=== PATIENT | female | born 1995 | race Caucasian/White ===

== ENCOUNTER 2022-06-08 11:33 | Inpatient (IN) | payer MEDICAID, SELFPAY ==
[2022-06-08] VITALS (15 sets, daily range): BP systolic 111–128; BP diastolic 65–79; PULSE 99–118; RESP 0–22; TEMP 36.6–36.7; O2SAT 95–98; BMI 19.1
--- NOTE | 2022-06-08 11:40 | ECG_ITS ---
[facility] Test Date: 2022-06-08 Pat Name: Lilliam Alvarez Department: Room: EDIP Gender: Female Layup Worker: : 1995 Requested By: Jaswinder Koo Order Number: [id number] Jude MD: Casper Cody M.D. Measurements Intervals [place] Rate: 119 P: 70 CO: 167 QRS: 66 QRSD: 89 T: 52 QT: 302 QTc: 425 Interpretive Statements SINUS TACHYCARDIA Compared to ECG 02/01/2016 19:01:50 Sinus rhythm no longer present Sinus arrhythmia no longer present T-wave abnormality no longer present Electronically Signed On 06-09-2022 22:07:18 CDT by Casper Cody M.D. [id number] f
[2022-06-08 12:06] LABS: Glucose Point of Care > 600 mg/dL (70-110)
--- NOTE | 2022-06-08 12:07 | ED_ITS ---
HPI - General Adult General: Chief complaint: General Medical Stated complaint: Diabetic, Chest Pain, Blood Sugar Problems Time Seen by Provider: 06/08/22 11:48 History of Present Illness: Patient comes in with elevated blood sugar. States that she is type I and a brittle diabetic. States that she ran out of her short acting insulin yesterday because [place] from [place]. States that she is concerned she may go into DKA. Associated symptoms: Reports nausea; Deny chest pain, dyspnea, headache(s), rash, palpitations or vomiting Review of Systems Const: Denies: fever(s) or body aches Eyes: Denies: change in vision or blurry vision ENMT: Denies: throat pain or odynophagia Card: Denies: chest pain or palpitations Resp: Denies: dyspnea or productive cough GI: Reports: nausea; Denies: abdominal pain or vomiting : Denies: flank pain or dysuria Musc: Denies: neck pain or back pain Skin/Breast: Denies: rash or pruritus Neuro: Denies: headache(s) or numbness in extremities Psych: Denies: anxiety or change in appetite Endo: Denies: polyuria or excessive sweating Physical Exam Const: COMMON NORMALS: no acute distress, patient oriented x3, healthy appearing and alert HENMT: COMMON NORMALS: normocephalic and atraumatic HEAD & SCALP: norm ocephalic and atraumatic OTHER: Fruity odor to the breath Eye: COMMON NORMALS: Equal, round and reactive pupils present and EOMs intact bilaterally PUPIL: Yes Equal, round and reactive pupils present Neck/C-Spine: COMMON NORMALS: full ROM and supple Resp: COMMON NORMALS: normal respiratory effort, No retractions and No use of accessory muscles Cardio: COMMON NORMALS: regular rhythm RHYTHM: regular rhythm OTHER: Tachycardia GI: COMMON NORMALS: Normal to inspection, nondistended, normoactive bowel sounds present, Soft to palpation and non-tender PALPATION: Yes Soft to palpation Back/Pelvis: COMMON NORMALS: thoracic and lumbar spine normal to inspection and no thoracic nor lumbar tenderness Extremity: COMMON NORMALS: normal to inspection and full ROM Neuro: COMMON NORMALS: patient oriented x3 SENSORIUM/ORIENTATION: Yes alert Psych: COMMON NORMALS: mental status grossly normal and cooperative Skin: COMMON NORMALS: no rashes or lesions noted and no wounds GENERAL SKIN EXAM: no rashes or lesions noted Course Vital Signs: Vital signs: Vital Signs Temperature 97.8 F 06/08/22 11:41 Pulse Rate 118 H 06/08/22 11:41 Respiratory Rate 16 06/08/22 11:41 Blood Pressure 125/79 06/08/22 11:41 Pulse Oximetry 98 06/08/22 11:41 Oxygen Delivery Me thod 06/08/22 11:41 MDM - General Adult Medical Decision Making Patient comes in with elevated blood sugar. States that she is type I and a brittle diabetic. States that she ran out of her short acting insulin yesterday because her physician is from out of state. States that she is concerned she may go into DKA. On physical exam she is tachycardic, with a fruity odor on her breath. Will check labs, give IV fluids, give IV insulin, and reassess. On reassessment I talked to the patient about the test results. We will start insulin drip, continue IV fluids, and admit to the ICU for further treatment of her DKA. Lab Data : 06/08/22 10:22 06/08/22 10:22 Laboratory Results WBC 7.4 10^3/uL (4.0-10.0) 06/08/22 10:22 RBC 4.61 10^6/uL (4.1-5.3) 06/08/22 10:22 Hgb 13.8 g/dL (11.5-15.3) 06/08/22 10:22 Hct 44.2 % (37.0-47.0) 06/08/22 10:22 MCV 95.9 fl (81-99) 06/08/22 10:22 MCH 29.9 pg (28.0-34.0) 06/08/22 10:22 MCHC 31.2 g/dL (30.0-36.0) 06/08/22 10:22 RDW 13.2 % (12.1-15.1) 06/08/22 10:22 Plt Count 248 10^3/cmm (130-400) 06/08/22 10:22 MPV 11.8 fL (7.4-10.4) H 06/08/22 10:22 Neut % (Auto) 63.8 % 06/08/22 10:22 Lymph % (Auto) 22.7 % 06/08/22 10: [place] % (Auto) 8.2 % 06/08/22 10:22 Eos % (Auto) 2.8 % 06/08/22 10: Baso % (Auto) 1.3 % 06/08/22 10:22 Neut # (Auto) 4.74 10^3/uL (1.8-7.7) 06/08/22 10:22 Lymph # (Auto) 1.7 10^3/uL (0.8-4.8) 06/08/22 10:22 [place] # (Auto) 0.6 10^3/uL (0.2-0.9) 06/08/22 10:22 Eos # (Auto) 0.2 10^3/uL (0.0-0.8) 06/08/22 10:22 Baso # (Auto) 0.1 10^3/uL (0.0-0.1) 06/08/22 10: Nucleated RBC % (auto) 0 % 06/08/22 10: Nucleated RBCs # 0.0 /100WBC 06/08/22 10: Specimen Type Arterial 06/08/22 12:27 Sample Site Brachial, right 06/08/22 12:27 ABG pH 7.30 (7.35-7.45) L 06/08/22 12:27 ABG pCO2 32.7 mmHg (35-45) L 06/08/22 12:27 ABG pO2 119.0 mmHg (80.0-100.0) H 06/08/22 12:27 ABG HCO3 16.1 mmol/L (22-26) L 06/08/22 12:27 ABG Base Excess -9.2 mmol/L (-2.0-2.0) L 06/08/22 12:27 Sonido Test N/a 06/08/22 12:27 Hematocrit 40.5 % (37-47) 06/08/22 12:27 O2 Delivery Device Room air 06/08/22 12:27 FiO2 21.0 % 06/08/22 12:27 Turning Machine Operator ID Amh 06/08/22 12:27 Sodium 123 mmol/L (136-145) L 06/08/22 10: Potassium 5.4 mmol/L (3.5-5.1) H 06/08/22 10: Chloride 83 mmol/L (98-107) L 06/08/22 10: Carbon Dioxide 16 mmol/L (22-29) L 06/08/22 10: Anion Gap 29.4 (5-19) H 06/08/22 10:22 BUN 26 mg/dL (6-20) H 06/08/22 10: Creatinine 0.9 mg/dL (0.5-0.9) 06/08/22 10: GFR Calculation 76.3 mL/min (90-130) L 06/08/22 10: Glucose 1044 mg/dL (65-115) H* 06/08/22 10: POC Glucose > 600 mg/dL (70-110) H* 06/08/22 12: Calculated Osmolality 313 mOsm/kg (285-295) H 06/08/22 10: Calcium 9.6 mg/dL (8.5-10.5) 06/08/22 10: Total Bilirubin 0.3 mg/dL (0.15-1.2) 06/08/22 10: AST 58 U/L (0-32) H 06/08/22 10: ALT 34 U/L (0-33) H 06/08/22 10: Alkaline Phosphatase 356 U/L (35-105) H 06/08/22 10: Total Protein 6.8 g/dL (6.6-8.7) 06/08/22 10: Albumin 4.0 g/dL (3.5-5.2) 06/08/22 10: Globulin 2.8 g/dL (1.3-4.6) 06/08/22 10:22 Urine Color Yellow (Yellow) 06/08/22 12:02 Urine Appearance Clear (CLEAR) 06/08/22 12:02 Urine pH 5.5 (5-7) 06/08/22 12:02 Ur Specific [place] 1.010 (1.005-1.030) 06/08/22 12:02 Urine Protein Negative (Negative) 06/08/22 12:02 Urine Glucose (UA) 4+ (Normal) H 06/08/22 12:02 Urine Ketones =>160 (Negative) 06/08/22 12:02 Urine Blood Negative (Negative) 06/08/22 12:02 Urine Nitrate Negative 06/08/22 12:02 Urine Bilirubin Negative (Negative) 06/08/22 12:02 Urine Urobilinogen 0.2 mg/dL (Negative) 06/08/22 12:02 Ur Leukocyte Esterase Negative (Negative) 06/08/22 12:02 Serum Ketones Positive (Negative) H 06/08/22 10:22 Critical Care Time Critical Care Time: Critical Care Time: Yes Total Critical Care Time: 35 Attestation: This case had a high probability of a clinically significant, sudden, or life threatening deterioration of this patient's condition which required my full and direct attention, intervention and personal management. Discharge Plan Discharge Patient Disposition: Admitted As Inpatient Clinical Impression: DKA (diabetic ketoacidosis) Condition: Stable Referrals: Shane Drake MD [Primary Care Provider] - Coding Level of Care Code ED Hull Outfit Supervisor for Chg Fwd Exam Comprehensive
[2022-06-08 12:12] LABS: Add Urine Microscopic? NO; Charge for UA Resulting for Rev
[2022-06-08 12:14] LABS: Basophils # 0.1 10^3/uL (0.0-0.1); Basophils % 1.3 %; Eosinophils # 0.2 10^3/uL (0.0-0.8); Eosinophils % 2.8 %; Hematocrit 44.2 % (37.0-47.0); Hemoglobin 13.8 g/dL (11.5-15.3); Lymphocytes # 1.7 10^3/uL (0.8-4.8); Lymphocytes % 22.7 %; Mean Corpuscular HGB Conc 31.2 g/dL (30.0-36.0); Mean Corpuscular Hemoglobin 29.9 pg (28.0-34.0); Mean Corpuscular Volume 95.9 fl (81-99); Mean Platelet Volume 11.8 fL (7.4-10.4); Monocytes # 0.6 10^3/uL (0.2-0.9); Monocytes % 8.2 %; Neutrophils # 4.74 10^3/uL (1.8-7.7); Neutrophils % 63.8 %; Nucleated Red Blood Cells % 0 %; Platelet Count 248 10^3/cmm (130-400); Red Blood Count 4.61 10^6/uL (4.1-5.3); Red Cell Distribution Width 13.2 % (12.1-15.1); White Blood Count 7.4 10^3/uL (4.0-10.0)
[2022-06-08] MEDS: insulin regular-human 100 units/1 mL 9 UNIT IVP (12:14)
[2022-06-08] MEDS: sodium chloride 0.9% 1,000 ML 999 ML IV ×2 (12:14→13:17)
[2022-06-08 12:27] LABS: Ketone (Acetest) Serum Positive (Negative)
[2022-06-08 12:28] LABS: Bilirubin Urine Negative (Negative); Blood Urine Negative (Negative); Glucose Urine UA 4+ (Normal); Leukocyte Esterase Urine Negative (Negative); Nitrate Urine Negative; Protein Urine Negative (Negative); Urine Appearance Clear (CLEAR); Urine Color Yellow (Yellow); Urobilinogen Urine 0.2 mg/dL (Negative); pH Urine 5.5 (5-7)
[2022-06-08 12:37] LABS: Alanine Aminotransferase 34 U/L (0-33); Alkaline Phosphatase 356 U/L (35-105); Aspartate Amino Transferase 58 U/L (0-32); Blood Urea Nitrogen 26 mg/dL (6-20); Calcium 9.6 mg/dL (8.5-10.5); Carbon Dioxide 16 mmol/L (22-29); Chloride 83 mmol/L (98-107); Globulin 2.8 g/dL (1.3-4.6); Glomerular Filtration Rate 76.3 mL/min (90-130); Sodium 123 mmol/L (136-145); Total Bilirubin 0.3 mg/dL (0.15-1.2); Total Protein 6.8 g/dL (6.6-8.7)
[2022-06-08 12:39] LABS: ABG PCO2 32.7 mmHg (35-45); Arterial Blood Gas Hematocrit 40.5 % (37-47); Base Excess ABG -9.2 mmol/L (-2.0-2.0); Blood Gas Operator Identificat AMH; Blood Gas Sample Site Brachial, right; Blood Gas Sample Type Arterial; HCO3 ABG 16.1 mmol/L (22-26); Oxygen Device ROOM AIR
[2022-06-08 12:45] LABS: Osmolality Calculated 313 mOsm/kg (285-295)
[2022-06-08 12:46] LABS: Anion Gap 29.4 (5-19); Potassium 5.4 mmol/L (3.5-5.1)
[2022-06-08 12:47] LABS: Glucose 1044 mg/dL (65-115)
--- NOTE | 2022-06-08 14:45 | PM.HP ---
Providers/Chief Complaint Admitting Physician: Francis Patel Primary Care Provider: Rell Drake Chief Complaint: Diabetic, Chest Pain, Blood Sugar Problems History of Present Illness 26-year-old normally goes by Desean, with history of DM1, on Lantus insulin daily, dose depends on blood sugar, level of activity, intake, today took 25 units Lantus in the morning, and also takes sliding scale NovoLog before meals. ran out of insulin recently and her primary provider who is in [place] could not provide a refill. She recently moved to the area. States otherwise has been doing well, has been working quite a bit and gets intermittent lower extremity swelling but not persistent. Does have gastroparesis, and has had some symptoms of slowed transit, but otherwise no vomiting. Has been having some diarrhea. Is also having some burning in the chest, dull ache, feels like was punched in the chest , worse with deep breaths and movement. In ER found to be in sinus tachycardia, afebrile, without leukocytosis, with metabolic acidosis with partial respiratory compensation, dehydrated, with sodium 123, potassium 5.4, chloride 8.3, bicarb 16, anion gap 29.4, BUN 26, creatinine 0.9. Glucose more than 600. T bili normal, AST 58, ALT 34. Alk phos 356. Urine and serum ketones positive. Urinalysis otherwise unremarkable. Received IV fluid bolus, insulin drip as requested. ICU bed is requested. Review of Systems Const: Denies: fever(s), chills, body aches or malaise Eyes: Denies: change in vision, eye discomfort or eye redness ENMT: Denies: throat pain, oral sores or ear or mastoid pain Card: Reports: chest pain and edema; Denies: pre-syncope or dyspnea on exertion Resp: Denies: dyspnea, productive cough, change in phlegm color or hemoptysis GI: Reports: nausea and diarrhea; Denies: abdominal pain, vomiting, constipation, hematochezia or melena : Denies: flank pain, urinary frequency or hematuria Musc: Denies: back pain, joint swelling or joint redness Skin/Breast: Denies: rash or new lesions Neuro: Denies: headache(s), numbness in extremities, weakness in extremities, dizziness, confusion or seizure-like activity Endo: Denies: polyuria or polydipsia [place]/Lymph: Denies: easy bleeding or tender lymph nodes All/Imm: Denies: urticaria or tongue swelling Medications/Allergies Allergies Allergy/AdvReac Type Severity Reaction Status Date / Time pseudoephedrine Allergy Unknown Verified 06/08/22 11:43 PFSH Acute PFSH: Medical History Diabetes, type I Gastroparesis Long-term current use of testosterone replacement therapy Surgical History History of dental surgery History of eye surgery Family History Grandmother Cancer Social History Lives independently: Yes Household members: other Details: Roommate Current occupational status: employed Vitals/I&O/Wt Last Vital Signs Temp 97.8 F 06/08/22 11:41 Pulse 118 H 06/08/22 11:41 Resp 16 06/08/22 11:41 BP 125/79 06/08/22 11:41 Pulse Ox 98 06/08/22 11:41 O2 Del Method 06/08/22 11:41 06/07/22 06/08/22 06/08/22 22:59 06:59 14:59 Intake Total 1000 / 1000 Balance 1000 / 1000 Weight last 48 hrs Weight 52.163 kg Physical Exam Const: COMMON NORMALS: patient oriented x3 and alert GENERAL APPEARANCE: cooperative and ill appearing ORIENTATION/CONSCIOUSNESS: Yes awake HENMT: COMMON NORMALS: oropharynx normal Neck/C-Spine: COMMON NORMALS: no JVD Resp: COMMON NORMALS: normal respiratory effort and clear to auscultation bilaterally AUSCULTATION: clear to auscultation bilaterally Cardio: COMMON NORMALS: no JVD, regular rhythm, S1 normal heart sound present, S2 normal heart sound present and No murmurs present (Cardio) RATE: tachycardic RHYTHM: regular rhythm HEART SOUNDS: S1 normal heart sound present and S2 normal heart sound present GI: COMMON NORMALS: Normal to inspection, nondistended, normoactive bowel sounds present, Soft to palpation and non-tender PALPATION: Yes Soft to palpation Extremity: COMMON NORMALS: no joint enlargement and no pedal edema Neuro: COMMON NORMALS: patient oriented x3 and moves all extremities SENSORIUM/ORIENTATION: Yes alert Skin: COMMON NORMALS: no rashes or lesions noted GENERAL SKIN EXAM: no rashes or lesions noted Data : 06/08/22 10:22 06/08/22 10:22 A&P Assessment and plan (1) DKA (diabetic ketoacidosis): IV fluid, insulin drip, monitor electrolytes. NPO. ICU admission. DVT prophylaxis. Will need prescription for insulin at discharge. (2) Chest discomfort: Burning chest discomfort, pleuritic. Concern for hypercoagulability due to DKA, also on testosterone therapy. Assess troponin, EKG series. D-dimer. COVID-19 PCR. Monitor on telemetry. Asks for something for pain. Protonix, Tylenol, ibuprofen as needed. Plan States has recently moved to the area does not yet have established PCP. DM1 Gastroparesis Chronic testosterone therapy Attestations Medical Necessity Statement*: Admission of over 2 midnights is anticipated for assessment of management of DKA Critical Care Time: The high probability of a clinically significant, sudden or life threatening deterioration of the patient's endocrine system(s) required my full and direct attention, intervention and personal management. The critical care time is as shown. This time is in addition to time spent performing any reported procedures but includes the following: x Data and vital sign review and interpretation x Patient assessment, examination and intervention x Documentation x Medication orders and management Critical Care Time (min): 50 Coding Level of Care Code Acute Architectural Model Maker for [facility] Diagnoses DKA (diabetic ketoacidosis) E11.10 Chest discomfort R07.89
[2022-06-08 14:46] LABS: Glucose 607 mg/dL (65-115)
[2022-06-08] MEDS: insulin regular-human 250 UNIT in sodium chloride 0.9% 250 ML 16.4 UNIT IV (15:04)
--- NOTE | 2022-06-08 15:15 | ECG_ITS ---
[facility] Test Date: 2022-06-08 Pat Name: Lilliam Alvarez Department: Room: EDIP Gender: Female Chrome Tanner: : 1995 Requested By: Francis Patel Order Number: [id number] Jude MD: Casper Cody M.D. Measurements Intervals [place] Rate: 111 P: 64 MN: 154 QRS: 71 QRSD: 105 T: 25 QT: 323 QTc: 439 Interpretive Statements SINUS TACHYCARDIA NONSPECIFIC T-WAVE ABNORMALITY ABNORMAL RHYTHM ECG Compared to ECG 02/01/2016 19:01:50 Sinus rhythm no longer present Sinus arrhythmia no longer present T-wave abnormality still present Electronically Signed On 06-09-2022 22:02:59 CDT by Casper Cody M.D. [id number]
[2022-06-08 15:19] LABS: D Dimer <= 0.27 ug/mIFEU (0-0.59)
[2022-06-08] MEDS: sodium chloride 0.45% 1,000 ML 200 ML IV (15:19)
[2022-06-08 15:31] LABS: Troponin(5th) Baseline 7 ng/L (0-10)
[2022-06-08 16:32] LABS: Glucose Point of Care 264 mg/dL (70-110)
[2022-06-08 16:32] LABS: Glucose Point of Care 363 mg/dL (70-110)
[2022-06-08 16:55] LABS: Glucose Point of Care 229 mg/dL (70-110)
[2022-06-08 17:28] LABS: Glucose Point of Care 181 mg/dL (70-110)
--- NOTE | 2022-06-08 17:41 | XRR_ITS ---
PROCEDURE INFORMATION: Exam: XR Chest Exam date and time: 06/08/2022 5:49 PM Age: 26 years old Clinical indication: Pain; Chest pressure; Additional info: Chest discomfort TECHNIQUE: Imaging protocol: Radiologic exam of the chest. Views: 1 view. COMPARISON: No relevant prior studies available. FINDINGS: Lungs: Unremarkable. No consolidation. Pleural spaces: Unremarkable. No pleural effusion. No pneumothorax. Heart/Mediastinum: Unremarkable. No cardiomegaly. Bones/joints: Unremarkable. XR/XR chest 1V portable [id number] IMPRESSION: No acute findings.
--- NOTE | 2022-06-08 17:43 | PC.NURSE ---
Call made to admitting provider. Notified of patient current BG level, asked to change maintenance fluids to D5 1/2 NS. Provider will change fluids. Patient mother is at bedside. Updated on plan of care, all questions answered at this time. Patient appears to be sleeping, awakes with stimulation.
[2022-06-08] MEDS: dextrose 5%-sod chloride 0.45% 1,000 ML 200 ML IV (17:45)
[2022-06-08 18:10] LABS: Anion Gap 12.2 (5-19); Blood Urea Nitrogen 19 mg/dL (6-20); Calcium 8.7 mg/dL (8.5-10.5); Carbon Dioxide 25 mmol/L (22-29); Chloride 100 mmol/L (98-107); Glomerular Filtration Rate 150.3 mL/min (90-130); Glucose 180 mg/dL (65-115); Magnesium 1.8 mg/dL (1.7-2.3); Osmolality Calculated 285 mOsm/kg (285-295); Phosphorus 2.7 mg/dL (2.5-4.5); Potassium 3.2 mmol/L (3.5-5.1); Sodium 134 mmol/L (136-145)
[2022-06-08 18:19] LABS: Glucose Point of Care 141 mg/dL (70-110)
[2022-06-08 18:33] LABS: Troponin 5 2HR 7.87 ng/L (0-10); Troponin 5 2HR Delta 0.87 ABS# (0-10)
--- NOTE | 2022-06-08 18:48 | PC.NURSE ---
Report called to LORNE Ken.
[2022-06-08 18:55] LABS: Glucose Point of Care 126 mg/dL (70-110)
--- NOTE | 2022-06-08 18:58 | PC.NURSE ---
Admitting provider notified of patient BG level, okay to give patient carb consistent clear diet. Report called to LORNE Ken with updated information. Patient family is at bedside.
[2022-06-08 19:32] LABS: Glucose Point of Care 119 mg/dL (70-110)
[2022-06-08 20:12] LABS: Adenovirus Not Detected (NOT DETECT); Chlamydia Pneumoniae Not Detected (NOT DETECT); Coronavirus 229E,HKU1,NL63,OC4 Not Detected (NOT DETECT); Human Metapneumovirus Not Detected (NOT DETECT); Human Rhinovirus/Enterovirus Not Detected (NOT DETECT); Influenza A Not Detected (NOT DETECT); Influenza A H1 Not Detected (NOT DETECT); Influenza A H1-2009 Not Detected (NOT DETECT); Influenza A H3 Not Detected (NOT DETECT); Influenza B Not Detected (NOT DETECT); Mycoplasma Pneumoniae Not Detected (NOT DETECT); Parainfluenza Virus Type 1 Not Detected (NOT DETECT); Parainfluenza Virus Type 2 Not Detected (NOT DETECT); Parainfluenza Virus Type 3 Not Detected (NOT DETECT); Parainfluenza Virus Type 4 Not Detected (NOT DETECT); Respiratory Syncytial Virus A Not Detected (NOT DETECT); Respiratory Syncytial Virus B Not Detected (NOT DETECT); SARS-COV-2 Not Detected (NOT DETECT)
[2022-06-08] MEDS: insulin glargine 100 units/1 mL 20 UNIT SUBCUT (20:16)
[2022-06-08 20:33] LABS: Troponin 5 6HR 7.25 ng/L (0-10); Troponin 5 6HR Delta 0.25 ng/L (0-12)
[2022-06-08 21:11] LABS: Glucose Point of Care 92 mg/dL (70-110)
[2022-06-08 23:46] LABS: Glucose Point of Care 218 mg/dL (70-110)
[2022-06-09 00:26] LABS: Anion Gap 10.8 (5-19); Blood Urea Nitrogen 14 mg/dL (6-20); Calcium 8.7 mg/dL (8.5-10.5); Carbon Dioxide 28 mmol/L (22-29); Chloride 103 mmol/L (98-107); Glomerular Filtration Rate 121.8 mL/min (90-130); Glucose 247 mg/dL (65-115); Osmolality Calculated 295 mOsm/kg (285-295); Potassium 3.8 mmol/L (3.5-5.1); Sodium 138 mmol/L (136-145)
[2022-06-09 00:54] LABS: Glucose Point of Care 183 mg/dL (70-110)
[2022-06-09 01:52] VITALS: BP 106/67; PULSE 94; RESP 17; TEMP 36.7; O2SAT 97
[2022-06-09 01:55] LABS: Glucose Point of Care 188 mg/dL (70-110)
--- NOTE | 2022-06-09 01:57 | PC.NURSE ---
0145- pt transferred to med surg bed 261 via wheelchair. all belongings sent with patient, patient will notify family of transfer.
[2022-06-09] MEDS: dextrose 5%-sod chloride 0.45% 1,000 ML 30 ML IV (01:59)
[2022-06-09 04:00] VITALS: BP 125/72; PULSE 90; RESP 16; TEMP 36.6; O2SAT 97
[2022-06-09 04:18] LABS: Glucose Point of Care 157 mg/dL (70-110)
[2022-06-09 06:12] LABS: Basophils # 0.1 10^3/uL (0.0-0.1); Basophils % 0.9 %; Eosinophils # 0.4 10^3/uL (0.0-0.8); Eosinophils % 4.3 %; Hematocrit 38.2 % (37.0-47.0); Hemoglobin 12.8 g/dL (11.5-15.3); Lymphocytes # 3.3 10^3/uL (0.8-4.8); Lymphocytes % 39.7 %; Mean Corpuscular HGB Conc 33.5 g/dL (30.0-36.0); Mean Corpuscular Hemoglobin 29.9 pg (28.0-34.0); Mean Corpuscular Volume 89.3 fl (81-99); Mean Platelet Volume 11.3 fL (7.4-10.4); Monocytes # 0.6 10^3/uL (0.2-0.9); Monocytes % 7.4 %; Neutrophils # 3.87 10^3/uL (1.8-7.7); Neutrophils % 47.2 %; Nucleated Red Blood Cells % 0 %; Platelet Count 235 10^3/cmm (130-400); Red Blood Count 4.28 10^6/uL (4.1-5.3); White Blood Count 8.2 10^3/uL (4.0-10.0)
[2022-06-09 06:15] LABS: Glucose Point of Care 142 mg/dL (70-110)
[2022-06-09 06:33] VITALS: PULSE 80
[2022-06-09 06:42] LABS: Albumin Level 3.2 g/dL (3.5-5.2); Alkaline Phosphatase 131 U/L (35-105); Chloride 105 mmol/L (98-107); Potassium 3.3 mmol/L (3.5-5.1); Sodium 142 mmol/L (136-145)
[2022-06-09 07:31] LABS: Alanine Aminotransferase 21 U/L (0-33); Anion Gap 13.3 (5-19); Aspartate Amino Transferase 18 U/L (0-32); Blood Urea Nitrogen 12 mg/dL (6-20); Calcium 8.7 mg/dL (8.5-10.5); Carbon Dioxide 27 mmol/L (22-29); Globulin 1.9 g/dL (1.3-4.6); Glomerular Filtration Rate 194.5 mL/min (90-130); Glucose 168 mg/dL (65-115); Osmolality Calculated 298 mOsm/kg (285-295); Total Bilirubin 0.3 mg/dL (0.15-1.2); Total Protein 5.1 g/dL (6.6-8.7)
[2022-06-09 08:00] VITALS: BP 112/72; PULSE 62; RESP 12; TEMP 36.8; O2SAT 99
[2022-06-09] MEDS: insulin lispro 100 unit/1 mL SUBCUT ×2 (08:55→12:26)
--- NOTE | 2022-06-09 11:14 | P.DS_ITS ---
Discharge Providers Date of Admission: 06/08/22 13:00 Date of Discharge: June 09, 2022 Attending Provider at Admission: Francis Patel Attending Provider at Discharge: Francis Patel Primary Care Provider: Rell Drake Diagnoses at Discharge Discharge Diagnosis (1) DKA (diabetic ketoacidosis): Status: Acute (2) Chest discomfort: Status: Acute Reason for Visit Reason for Visit: Diabetic, Chest Pain, Blood Sugar Problems Hospital Course Hospital Course Patient is a 26-year-old with history of DM1, DKA, gastroparesis, chronic testosterone therapy, goes by Desean, presented to the hospital feeling unwell, wi th severe hyperglycemia, dehydration, had ran out of insulin and could not obtain a refill from primary provider. He was admitted for assessment of management of DKA, treated with IV fluids, insulin drip, without noted obvious other trigger. With some chest discomfort, burning sensation presentation, however, troponin EKG series nonstressed of acute DE. D-dimer normal. COVID-19 negative. Chest x-ray unremarkable. Does have gastroparesis. DKA resolved, was transitioned to subcutaneous insulin, today feeling better, without any additional complaints. He states has a good supply of Lantus at home and is provided with prescription for NovoLog. Physical Exam Narrative: Awake alert, appears comfortable, playing a game on cell phone. Const: COMMON NORMALS: patient oriented x3 and alert GENERAL APPEARANCE: cooperative ORIENTATION/CONSCIOUSNESS: Yes awake HENMT: COMMON NORMALS: oropharynx normal Neck/C-Spine: COMMON NORMALS: no JVD Resp: COMMON NORMALS: normal respiratory effort and clear to auscultation bilaterally AUSCULTATION: clear to auscultation bilaterally Cardio: COMMON NORMALS: no JVD, regular rhythm, S1 normal heart sound present, S2 normal heart sound present and No murmurs present (Cardio) RHYTHM: regular rhythm HEART SOUNDS: S1 normal heart sound present and S2 normal heart sound present GI: COMMON NORMALS: Normal to inspection, nondistended, normoactive bowel sounds present, Soft to palpation and non-tender PALPATION: Yes Soft to palpation Extremity: COMMON NORMALS: no joint enlargement and no pedal edema Neuro: COMMON NORMALS: patient oriented x3 and moves all extremities SENSORIUM/ORIENTATION: Yes alert Skin: COMMON NORMALS: no rashes or lesions noted GENERAL SKIN EXAM: no rashes or lesions noted Discharge Data Studies Completed and Pending Completed Studies During Hospitalization Category Date Time Status CXRP [XR chest 1V portable [id number]] Routine Exams 06/08/22 17:41 Completed Pending at discharge Category Date Time Status Complete Blood Count w/Auto AM LABS Lab 06/10/22 04:00 Ordered Complete Blood Count w/Auto AM LABS Lab 06/11/22 04:00 Ordered Comprehensive Metabolic Panel AM LABS Lab 06/10/22 04:00 Ordered Comprehensive Metabolic Panel AM LABS Lab 06/11/22 04:00 Ordered Radiology Impressions Chest X-Ray 06/08/22 17:41 IMPRESSION: No acute findings. Laboratory Results WBC 8.2 10^3/uL (4.0-10.0) 06/09/22 05:45 RBC 4.28 10^6/uL (4.1-5.3) 06/09/22 05:45 Hgb 12.8 g/dL (11.5-15.3) 06/09/22 05:45 Hct 38.2 % (37.0-47.0) 06/09/22 05:45 MCV 89.3 fl (81-99) D 06/09/22 05:45 MCH 29.9 pg (28.0-34.0) 06/09/22 05:45 MCHC 33.5 g/dL (30.0-36.0) D 06/09/22 05:45 RDW 13.0 % (12.1-15.1) 06/09/22 05:45 Plt Count 235 10^3/cmm (130-400) 06/09/22 05:45 MPV 11.3 fL (7.4-10.4) H 06/09/22 05:45 Neut % (Auto) 47.2 % 06/09/22 05:45 Lymph % (Auto) 39.7 % 06/09/22 05:45 [place] % (Auto) 7.4 % 06/09/22 05:45 Eos % (Auto) 4.3 % 06/09/22 05:45 Baso % (Auto) 0.9 % 06/09/22 05:45 Neut # (Auto) 3.87 10^3/uL (1.8-7.7) 06/09/22 05:45 Lymph # (Auto) 3.3 10^3/uL (0.8-4.8) 06/09/22 05:45 [place] # (Auto) 0.6 10^3/uL (0.2-0.9) 06/09/22 05:45 Eos # (Auto) 0.4 10^3/uL (0.0-0.8) 06/09/22 05:45 Baso # (Auto) 0.1 10^3/uL (0.0-0.1) 06/09/22 05:45 Nucleated RBC % (auto) 0 % 06/09/22 05:45 Nucleated RBCs # 0.0 /100WBC 06/09/22 05:45 D-Dimer <= 0.27 ug/mIFEU (0-0.59) 06/08/22 12:02 Specimen Type Arterial 06/08/22 12:27 Sample Site Brachial, right 06/08/22 12:27 ABG pH 7.30 (7.35-7.45) L 06/08/22 12:27 ABG pCO2 32.7 mmHg (35-45) L 06/08/22 12:27 ABG pO2 119.0 mmHg (80.0-100.0) H 06/08/22 12:27 ABG HCO3 16.1 mmol/L (22-26) L 06/08/22 12:27 ABG Base Excess -9.2 mmol/L (-2.0-2.0) L 06/08/22 12:27 Sonido Test N/a 06/08/22 12:27 Hematocrit 40.5 % (37-47) 06/08/22 12:27 O2 Delivery Device Room air 06/08/22 12:27 FiO2 21.0 % 06/08/22 12:27 Business Editor ID Amh 06/08/22 12:27 Sodium 142 mmol/L (136-145) 06/09/22 05:45 Potassium 3.3 mmol/L (3.5-5.1) L 06/09/22 05:45 Chloride 105 mmol/L (98-107) 06/09/22 05:45 Carbon Dioxide 27 mmol/L (22-29) 06/09/22 05:45 Anion Gap 13.3 (5-19) 06/09/22 05:45 BUN 12 mg/dL (6-20) 06/09/22 05:45 Creatinine 0.4 mg/dL (0.5-0.9) L 06/09/22 05:45 GFR Calculation 194.5 mL/min (90-130) H 06/09/22 05:45 Glucose 168 mg/dL (65-115) H 06/09/22 05:45 POC Glucose 142 mg/dL (70-110) H 06/09/22 06:08 Glucose 1 Hr Postprand Cancelled 06/08/22 13:50 Calculated Osmolality 298 mOsm/kg (285-295) H 06/09/22 05:45 Calcium 8.7 mg/dL (8.5-10.5) 06/09/22 05:45 Phosphorus 2.7 mg/dL (2.5-4.5) 06/08/22 17:41 Magnesium 2.0 mg/dL (1.7-2.3) 06/08/22 23:55 Total Bilirubin 0.3 mg/dL (0.15-1.2) 06/09/22 05:45 AST 18 U/L (0-32) 06/09/22 05:45 ALT 21 U/L (0-33) 06/09/22 05:45 Alkaline Phosphatase 131 U/L (35-105) H 06/09/22 05:45 Troponin T Baseline 7 ng/L (0-10) 06/08/22 13:50 Troponin T 120 Minute 7.87 ng/L (0-10) 06/08/22 17:41 Delta Troponin T 0.87 ABS# (0-10) 06/08/22 17:41 Troponin T Hi Sens 6Hr 7.25 ng/L (0-10) 06/08/22 20:05 Troponin T Hi Sens 6Hr Delta 0.25 ng/L (0-12) 06/08/22 20:05 Total Protein 5.1 g/dL (6.6-8.7) L D 06/09/22 05:45 Albumin 3.2 g/dL (3.5-5.2) L 06/09/22 05:45 Globulin 1.9 g/dL (1.3-4.6) 06/09/22 05:45 Urine Color Yellow (Yellow) 06/08/22 12:02 Urine Appearance Clear (CLEAR) 06/08/22 12:02 Urine pH 5.5 (5-7) 06/08/22 12:02 Ur Specific [place] 1.010 (1.005-1.030) 06/08/22 12:02 Urine Protein Negative (Negative) 06/08/22 12:02 Urine Glucose (UA) 4+ (Normal) H 06/08/22 12:02 Urine Ketones =>160 (Negative) 06/08/22 12:02 Urine Blood Negative (Negative) 06/08/22 12:02 Urine Nitrate Negative 06/08/22 12:02 Urine Bilirubin Negative (Negative) 06/08/22 12:02 Urine Urobilinogen 0.2 mg/dL (Negative) 06/08/22 12:02 Ur Leukocyte Esterase Negative (Negative) 06/08/22 12:02 Serum Ketones Positive (Negative) H 06/08/22 10: Coronavirus 229E (PCR) Not detected (NOT DETECT) 06/08/22 18:16 SARS-CoV-2 (PCR) Not detected (NOT DETECT) 06/08/22 18:16 Vitals Last Vital Signs Temp 98.2 F 06/09/22 08:00 Pulse 62 06/09/22 08:00 Resp 12 06/09/22 08:00 BP 112/72 06/09/22 08:00 Pulse Ox 99 06/09/22 08:00 O2 Del Method 06/09/22 08:00 Discharge Plan Discharge Patient Disposition: Home Condition: Stable Prescriptions: New insulin aspart U-100 [Novolog Flexpen U-100 Insulin] 100 unit/mL (3 mL) in sulin pen See Rx Instructions .ROUTE .COMPLEX Qty: 15 3RF Rx Instructions: ACHS Glucose: 141-180 - 2 units 181-220 - 3 221-260 - 4 261-300 - 5 301-350 - 6 351-400 - 7 >400 - 8 units Continued Lantus Solostar U-100 Insulin Discharge Orders: Discharge Order (Routine); Ordered 06/09/22 Ordered By: Francis Patel Referrals: Sathya Phillips DO [Physician] - 4-7 days (You will need to call for a ppointment and can ask for first available provider if Dr. Phillips is not able to get you seen in the 4-7days. ) Jw Rosales MD [Physician] - 2 weeks (DM1, DKA) Discharge Diet: Diabetic Discharge Activity: Increase activity as tolerated Patient Instructions: Type 1 Diabetes, Diabetes and Diet, Insulin Aspart, Recombinant (By injection), Insulin Glargine (By injection), Diabetic Ketoacidosis (GEN), Opioid Safety Activity Restrictions/Additional Instructions: Continue glucose monitoring before meals and at night. Continue sliding scale insulin NovoLog. Continue long-acting insulin Lantus every 24 hours. Follow-up with primary provider and endocrinology for insulin refills, avoid missing insulin doses. Discharge Attestations Time Spent in Discharge Care*: greater than 30 min Quality Metrics Clinical Quality Measures [ No reported AMI, CVA or VTE this stay] Coding Level of Care Code Acute [facility] note Diagnoses DKA (diabetic ketoacidosis) E11.10 Chest discomfort R07.89
[2022-06-09 11:23] LABS: Glucose Point of Care 228 mg/dL (70-110)
--- NOTE | 2022-06-09 11:29 | PC.PHAR ---
Patient states she is taking Hydroxyzine and [facility] pharmacy [facility] have both stated they have not filled. Patient states she is taking Lantus and Novolog but pharmacy states meds are on hold and have not been picked up.
[2022-06-09 12:00] VITALS: BP 123/77; PULSE 70; RESP 16; TEMP 36.7; O2SAT 97
[2022-06-09 13:55] VITALS: BP 123/77; PULSE 70; RESP 16; TEMP 36.7; O2SAT 97
--- NOTE | 2022-06-10 13:32 | DCPLANNER ---
millinery department manager had message to speak with patient about getting established with a primary care physician. millinery department manager unable to speak with patient at this time and unable to leave a voicemail for patient.
== END 2022-06-09 14:01 | disposition home or self-care (01) | DRG 639 ==
LOC: ER 13:03 → ER IP 15:24 → ICU 18:28 → MEDSURG 06-09 01:42
PROVIDERS: Admitting Provider Internal Medicine; Emergency Provider Emergency Medicine; PCP Family Medicine; Visit Provider Internal Medicine
DX: E10.10 Type 1 diabetes mellitus with ketoacidosis without coma (principal); T38.3X6A Underdosing of insulin and oral hypoglycemic [antidiabetic] drugs, initial encounter; E10.43 Type 1 diabetes mellitus with diabetic autonomic (poly)neuropathy; K31.84 Gastroparesis; E86.0 Dehydration; R07.89 Other chest pain; Z79.4 Long term (current) use of insulin; Z79.890 Hormone replacement therapy
CPT/HCPCS: 36415; 36416; 36600; 71045; 80048; 80053; 81003; 82009; 82803; 82947; 82962; 83735; 84100; 84484; 85025; 85378; 87635; 93005; 96365; 96372; 96375; 99285; J1815; J7030; J7050; J7799

== ENCOUNTER 2022-06-25 23:20 | Emergency (ER) | payer MEDICAID, SELFPAY ==
[2022-06-25 23:23] VITALS: BP 143/98; PULSE 112; RESP 16; TEMP 37.1; O2SAT 100; BMI 19.5
--- NOTE | 2022-06-25 23:26 | XRR_ITS ---
PROCEDURE INFORMATION: Exam: XR Chest Exam date and time: 06/25/2022 11:31 PM Age: 26 years old Clinical indication: Cough and shortness of breath and wheezing; Patient HX: Cough with sob/wheezing. ; Additional info: Dyspnea TECHNIQUE: Imaging protocol: Radiologic exam of the chest. Views: 1 view. COMPARISON: CR (CHEST, ) 06/08/2022 5:49 PM FINDINGS: Lungs: Unremarkable. No consolidation. Pleural spaces: Unremarkable. No pleural effusion. No pneumothorax. Heart/Mediastinum: Unremarkable. No cardiomegaly. Bones/joints: Mild thoracolumbar curvature. No visible fracture. XR/XR chest 1V portable [id number] IMPRESSION: No acute finding.
--- NOTE | 2022-06-25 23:29 | ECG_ITS ---
[facility] Test Date: 2022-06-25 Pat Name: Lilliam Alvarez Department: Room: Gender: Female Back Panel Padder: : 1995 Requested By: Yovany Jim Order Number: [id number] Jude MD: Lou Ramsey M.D. Measurements Intervals [place] Rate: 119 P: 69 MN: 159 QRS: 65 QRSD: 105 T: 48 QT: 339 QTc: 478 Interpretive Statements SINUS TACHYCARDIA LEFT ATRIAL ENLARGEMENT [-0.15mV P-WAVE IN V1/V2] Possible old inferior wall DC Compared to ECG 06/08/2022 15:15:39 Atrial abnormality now present T-wave abnormality no longer present Electronically Signed On 06-26-2022 21:59:54 CDT by Lou Ramsey M.D. [id number]
[2022-06-25 23:39] LABS: Glucose Point of Care > 600 mg/dL (70-110)
[2022-06-25 23:39] LABS: Glucose Point of Care > 600 mg/dL (70-110)
--- NOTE | 2022-06-25 23:39 | W.ED.SOB ---
Documented by User: BRITANY Gotti 06/26/22 00:37 HPI - SOB/Dyspnea General: Chief Complaint: Shortness of Breath/Dyspnea Stated Complaint: SOB Time Seen by Provider: 06/25/22 23:31 History of Present Illness: HPI Narrative: 26-year-old female that identifies as a male and goes by Desean, comes in tonight for complaints of shortness of breath for the last 2 to 3 days. Patient reports elevation and blood sugar. Patient feels like she has congestion and difficulty breathing. Patient appears nontoxic. Patient appears in mild to no pain. Patient has had a history of Jazmyn barre syndrome and type 1 diabetes. Associated symptoms: Reports nausea; Deny fever(s) Review of Systems Const: Denies: fever(s) Resp: Reports: dyspnea GI: Reports: nausea PFS ED PFSH: Medical History Diabetes, type I Gastroparesis Long-term current use of testosterone replacement therapy Surgical History History of dental surgery History of eye surgery Family History Grandmother Cancer Social History Lives independently: Yes Household members: other Details: Roommate Current occupational status: employed Physical Exam Const: COMMON NORMALS: alert HENMT: COMMON NORMALS: normocephalic HEAD & SCALP: normocephalic Neck/C-Spine: COMMON NORMALS: full ROM Chest: COMMONS NORMALS: normal palpation of entire chest wall Resp: COMMON NORMALS: No use of accessory muscles AUSCULTATION: wheezes and diminished lung sounds Cardio: COMMON NORMALS: regular rhythm RATE: tachycardic RHYTHM: regular rhythm GI: COMMON NORMALS: non-tender : COMMON NORMALS: Yes no CVA tenderness BLADDER/KIDNEY EXAM: Yes no CVA tenderness Back/Pelvis: COMMON NORMALS: no CVA tenderness Neuro: SENSORIUM/ORIENTATION: Yes alert Skin: COMMON NORMALS: turgor normal GENERAL SKIN EXAM: turgor normal Course ED course: 2021, reviewed ABGs with Dr. Gregorio, pH was 7.307, CO2 was 18, potassium was 3.3, sodium 131, and glucose was 534. He recommended a dose of insulin and 2 L of saline IV, then recheck ABG. 0030, reviewed CMP with Dr. Gregorio who felt that the anion gap was probably too high to be able to discharge the patient to home. States we should admit to ICU for insulin drip and monitoring. Patient at first was upset about being admitted but agreed to plan. Vital Signs: Vital signs: Vital Signs Temperature 98.7 F 06/25/22 23:23 Pulse Rate 116 H 06/26/22 00:02 Respiratory Rate 20 H 06/25/22 23:58 Blood Pressure 134/94 06/25/22 23:57 Pulse Oximetry 100 06/25/22 23:58 Oxygen Delivery Me thod 06/25/22 23:58 MDM - SOB/Dyspnea Medical Decision Making 26-year-old female that identifies as a male comes in today with complaints of shortness of breath and chest discomfort. Patient states that her blood sugars have been poorly controlled for the last 2 weeks for what she believes is a respiratory infection. On exam lungs are diminished with occasional wheeze. Patient does vape routinely. Patient is alert and oriented. Patient does have some tachycardia noted on EKG. Blood pressure is in normal range. Differential diagnosis includes not limited to DKA, pneumonia, anxiety. ABG noted some mild acidosis at 7.307. CMP noted a potassium of 3.7, blood glucose was 633 on the CMP. Patient was started on 2 L of IV fluids, when anion gap was noted to be 33 we plan to admit to ICU. Dr. Cuba was consulted and agreed to plan. Patient was started on insulin drip per protocol. Patient agreed to plan for admission. Lab Data : 06/25/22 23:32 06/25/22 23:32 Labs/Radiology: Radiology Impressions Chest X-Ray 06/25/22 23:26 IMPRESSION: No acute finding. Laboratory Results WBC 8.7 10^3/uL (4.0-10.0) 06/25/22 23:32 RBC 4.73 10^6/uL (4.1-5.3) 06/25/22 23:32 Hgb 14.3 g/dL (11.5-15.3) 06/25/22 23:32 Hct 44.0 % (37.0-47.0) 06/25/22 23: MCV 93.0 fl (81-99) 06/25/22 23: MCH 30.2 pg (28.0-34.0) 06/25/22: MCHC 32.5 g/dL (30.0-36.0) 06/25/22: RDW 13.2 % (12.1-15.1) 06/25/22: Plt Count 272 10^3/cmm (130-400) 06/25/22 23: MPV 11.1 fL (7.4-10.4) H 06/25/22 23: Neut % (Auto) 73.3 % 06/25/22 23: Lymph % (Auto) 15.7 % 06/25/22: [place] % (Auto) 8.4 % 06/25/22: Eos % (Auto) 0.5 % 06/25/22: Baso % (Auto) 1.4 % 06/25/22: Neut # (Auto) 6.34 10^3/uL (1.8-7.7) 06/25/22 23: Lymph # (Auto) 1.4 10^3/uL (0.8-4.8) 06/25/22: [place] # (Auto) 0.7 10^3/uL (0.2-0.9) 06/25/22 23: Eos # (Auto) 0.0 10^3/uL (0.0-0.8) 06/25/22: Baso # (Auto) 0.1 10^3/uL (0.0-0.1) 06/25/22: Nucleated RBC % (auto) 0 % 06/25/22: Nucleated RBCs # 0.0 /100WBC 06/25/22: Specimen Type Arterial 06/25/22: Sample Site Radial, right 06/25/22:44 ABG pH 7.31 (7.35-7.45) L 06/25/22:44 ABG pCO2 18.1 mmHg (35-45) L* 06/25/22:44 ABG pO2 114.0 mmHg (80.0-100.0) H 06/25/22 23:44 ABG HCO3 9.1 mmol/L (22-26) L 06/25/22 23:44 ABG Base Excess -14.7 mmol/L (-2.0-2.0) L 06/25/22 23:44 Sonido Test Pos 06/25/22 23:44 Hematocrit 44.3 % (37-47) 06/25/22 23:44 O2 Delivery Device None 06/25/22 23:44 FiO2 21.0 % 06/25/22 23:44 Osteopathic Medicine Teacher ID Rick 06/25/22 23:44 Sodium 130 mmol/L (136-145) L 06/25/22 23:32 Potassium 3.7 mmol/L (3.5-5.1) 06/25/22 23:32 Chloride 90 mmol/L (98-107) L 06/25/22 23:32 Carbon Dioxide 10 mmol/L (22-29) L 06/25/22 23:32 Anion Gap 33.7 (5-19) H 06/25/22 23:32 BUN 23 mg/dL (6-20) H 06/25/22 23:32 Creatinine 1.2 mg/dL (0.5-0.9) H 06/25/22 23:32 GFR Calculation 54.7 mL/min (90-130) L 06/25/22 23:32 Glucose 633 mg/dL (65-115) H* 06/25/22 23:32 POC Glucose 424 mg/dL (70-110) H 06/26/22 00:28 Calculated Osmolality 303 mOsm/kg (285-295) H 06/25/22 23:32 Calcium 9.6 mg/dL (8.5-10.5) 06/25/22 23:32 Total Bilirubin 0.2 mg/dL (0.15-1.2) 06/25/22 23:32 AST 17 U/L (0-32) 06/25/22 23:32 ALT 21 U/L (0-33) 06/25/22 23:32 Alkaline Phosphatase 221 U/L (35-105) H 06/25/22 23:32 Troponin T Gen 5 ng/L 12 ng/L (0-10) H 06/25/22 23:32 Total Protein 7.3 g/dL (6.6-8.7) 06/25/22 23:32 Albumin 4.6 g/dL (3.5-5.2) 06/25/22 23:32 Globulin 2.7 g/dL (1.3-4.6) 06/25/22 23:32 Lipase 40 U/L (13-60) 06/25/22 23:32 HCG, Qual Negative (Negative) 06/25/22 23:32 Urine Color Light yellow (Yellow) 06/25/22 23:40 Urine Appearance Clear (CLEAR) 06/25/22 23:40 Urine pH 5 (5-7) 06/25/22 23:40 Ur Specific [place] 1.015 (1.005-1.030) 06/25/22 23:40 Urine Protein Neg (Negative) 06/25/22 23:40 Urine Glucose (UA) 4+ (Normal) H 06/25/22 23:40 Urine Ketones 3+ (Negative) H 06/25/22 23:40 Urine Blood Neg (Negative) 06/25/22 23:40 Urine Nitrate Negative (Negative) 06/25/22 23:40 Urine Bilirubin Neg (Negative) 06/25/22 23:40 Prot Sulfosalicylic Acd Negative (Negative) 06/25/22 23:40 Urine Urobilinogen Norm mg/dL (Negative) 06/25/22 23:40 Ur Leukocyte Esterase Negative (Negative) 06/25/22 23:40 Serum Ketones Positive (Negative) H 06/25/22 23:32 EKG Data EKG 1: EKG Interpretation Date: 06/25/22 EKG interpretation time: 23:42 Prior EKG tracings: not available for review Interpretation: EKG shows a regular sinus rhythm with a tachycardic rate at [address] elevation or ectopy is noted. Discharge Plan Discharge Patient Disposition: Admitted As Inpatient Admit Provider: Magali Cuba Clinical Impression: DKA (diabetic ketoacidosis) Condition: Stable Coding Level of Care Code ED Core Loader for Chg Fwd Exam Comprehensive Documented by User: Mikayla Gregorio MD 06/26/22 00:40 HPI - SOB/Dyspnea General: Chief Complaint: Shortness of Breath/Dyspnea Stated Complaint: SOB Time Seen by Provider: 06/25/22 23:31 PFSH ED PFSH: Medical History Diabetes, type I Gastroparesis Long-term current use of testosterone replacement therapy Surgical History History of dental surgery History of eye surgery Family History Grandmother Cancer Social History Lives independently: Yes Household members: other Details: Roommate Current occupational status: employed Course Vital Signs: Vital signs: Vital Signs Temperature 98.7 F 06/25/22 23:23 Pulse Rate 116 H 06/26/22 00:02 Respiratory Rate 20 H 06/25/22 23:58 Blood Pressure 134/94 06/25/22 23:57 Pulse Oximetry 100 06/25/22 23:58 Oxygen Delivery Me thod 06/25/22 23:58 MDM - SOB/Dyspnea Medical Decision Making 26-year-old female that identifies as a male comes in today with complaints of shortness of breath and chest discomfort. Patient states that her blood sugars have been poorly controlled for the last 2 weeks for what she believes is a respiratory infection. On exam lungs are diminished with occasional wheeze. Patient does vape routinely. Patient is alert and oriented. Patient does have some tachycardia noted on EKG. Blood pressure is in normal range. Differential diagnosis includes not limited to DKA, pneumonia, anxiety. ABG noted some mild acidosis at 7.307. CMP noted a potassium of 3.7, blood glucose was 633 on the CMP. Patient was started on 2 L of IV fluids, when anion gap was noted to be 33 we plan to admit to ICU. Dr. Cuba was consulted and agreed to plan. Patient was started on insulin drip per protocol. Patient agreed to plan for admission. I saw patient with above midlevel patient is in DKA with anion gap with mild acidosis patient started on insulin drip will admit to the ICU. Lab Data : 06/25/22 23:32 06/25/22 23:32 Labs/Radiology: Radiology Impressions Chest X-Ray 06/25/22: IMPRESSION: No acute finding. Laboratory Results WBC 8.7 10^3/uL (4.0-10.0) 06/25/22 23:32 RBC 4.73 10^6/uL (4.1-5.3) 06/25/22 23: Hgb 14.3 g/dL (11.5-15.3) 06/25/22 23: Hct 44.0 % (37.0-47.0) 06/25/22 23: MCV 93.0 fl (81-99) 06/25/22 23: MCH 30.2 pg (28.0-34.0) 06/25/22 23: MCHC 32.5 g/dL (30.0-36.0) 06/25/22 23: RDW 13.2 % (12.1-15.1) 06/25/22 23:32 Plt Count 272 10^3/cmm (130-400) 06/25/22 23: MPV 11.1 fL (7.4-10.4) H 06/25/22 23:32 Neut % (Auto) 73.3 % 06/25/22 23: Lymph % (Auto) 15.7 % 06/25/22 23: [place] % (Auto) 8.4 % 06/25/22 23: Eos % (Auto) 0.5 % 06/25/22 23: Baso % (Auto) 1.4 % 06/25/22 23: Neut # (Auto) 6.34 10^3/uL (1.8-7.7) 06/25/22 23:32 Lymph # (Auto) 1.4 10^3/uL (0.8-4.8) 06/25/22 23: [place] # (Auto) 0.7 10^3/uL (0.2-0.9) 06/25/22 23:32 Eos # (Auto) 0.0 10^3/uL (0.0-0.8) 06/25/22 23: Baso # (Auto) 0.1 10^3/uL (0.0-0.1) 06/25/22 23:32 Nucleated RBC % (auto) 0 % 06/25/22 23:32 Nucleated RBCs # 0.0 /100WBC 06/25/22 23:32 Specimen Type Arterial 06/25/22 23:44 Sample Site Radial, right 06/25/22 23:44 ABG pH 7.31 (7.35-7.45) L 06/25/22 23:44 ABG pCO2 18.1 mmHg (35-45) L* 06/25/22 23:44 ABG pO2 114.0 mmHg (80.0-100.0) H 06/25/22 23:44 ABG HCO3 9.1 mmol/L (22-26) L 06/25/22 23:44 ABG Base Excess -14.7 mmol/L (-2.0-2.0) L 06/25/22 23:44 Sonido Test Pos 06/25/22 23:44 Hematocrit 44.3 % (37-47) 06/25/22 23:44 O2 Delivery Device None 06/25/22 23:44 FiO2 21.0 % 06/25/22 23:44 Osteopathic Medicine Teacher ID [place] 06/25/22 23:44 Sodium 130 mmol/L (136-145) L 06/25/22 23:32 Potassium 3.7 mmol/L (3.5-5.1) 06/25/22 23:32 Chloride 90 mmol/L (98-107) L 06/25/22 23:32 Carbon Dioxide 10 mmol/L (22-29) L 06/25/22 23:32 Anion Gap 33.7 (5-19) H 06/25/22 23:32 BUN 23 mg/dL (6-20) H 06/25/22 23:32 Creatinine 1.2 mg/dL (0.5-0.9) H 06/25/22 23:32 GFR Calculation 54.7 mL/min (90-130) L 06/25/22 23:32 Glucose 633 mg/dL (65-115) H* 06/25/22 23:32 POC Glucose 424 mg/dL (70-110) H 06/26/22 00:28 Calculated Osmolality 303 mOsm/kg (285-295) H 06/25/22 23:32 Calcium 9.6 mg/dL (8.5-10.5) 06/25/22 23:32 Total Bilirubin 0.2 mg/dL (0.15-1.2) 06/25/22 23:32 AST 17 U/L (0-32) 06/25/22 23:32 ALT 21 U/L (0-33) 06/25/22 23:32 Alkaline Phosphatase 221 U/L (35-105) H 06/25/22 23:32 Troponin T Gen 5 ng/L 12 ng/L (0-10) H 06/25/22 23:32 Total Protein 7.3 g/dL (6.6-8.7) 06/25/22 23:32 Albumin 4.6 g/dL (3.5-5.2) 06/25/22 23:32 Globulin 2.7 g/dL (1.3-4.6) 06/25/22 23:32 Lipase 40 U/L (13-60) 06/25/22 23:32 HCG, Qual Negative (Negative) 06/25/22 23:32 Urine Color Light yellow (Yellow) 06/25/22 23:40 Urine Appearance Clear (CLEAR) 06/25/22 23:40 Urine pH 5 (5-7) 06/25/22 23:40 Ur Specific [place] 1.015 (1.005-1.030) 06/25/22 23:40 Urine Protein Neg (Negative) 06/25/22 23:40 Urine Glucose (UA) 4+ (Normal) H 06/25/22 23:40 Urine Ketones 3+ (Negative) H 06/25/22 23:40 Urine Blood Neg (Negative) 06/25/22 23:40 Urine Nitrate Negative (Negative) 06/25/22 23:40 Urine Bilirubin Neg (Negative) 06/25/22 23:40 Prot Sulfosalicylic Acd Negative (Negative) 06/25/22 23:40 Urine Urobilinogen Norm mg/dL (Negative) 06/25/22 23:40 Ur Leukocyte Esterase Negative (Negative) 06/25/22 23:40 Serum Ketones Positive (Negative) H 06/25/22 23:32 Critical Care Time Critical Care Time: Critical Care Time: Yes Total Critical Care Time: 35 Attestation: The high probability of a clinically significant, sudden or life threatening deterioration of the patient's endocrine system(s) required my full and direct attention, intervention and personal management. The critical care time is as shown. This time is in addition to time spent performing any reported procedures but includes the following: [x] Data and vital sign review and interpretation [x] Patient assessment, examination and intervention [x] Documentation [x] Medication orders and management Discharge Plan Discharge Patient Disposition: Admitted As Inpatient Admit Provider: Magali Cuba Clinical Impression: DKA (diabetic ketoacidosis) Condition: Stable Coding Level of Care Code ED Core Loader for Chg Fwd Exam Comprehensive
[2022-06-25] MEDS: insulin regular-human 100 units/1 mL 10 UNIT IVP (23:42)
[2022-06-25 23:47] VITALS: RESP 16
[2022-06-25] MEDS: morphine 4 mg/mL SDV 1 mL 2 MG IVP (23:47)
[2022-06-25 23:49] LABS: Basophils # 0.1 10^3/uL (0.0-0.1); Basophils % 1.4 %; Eosinophils % 0.5 %; Hemoglobin 14.3 g/dL (11.5-15.3); Lymphocytes # 1.4 10^3/uL (0.8-4.8); Lymphocytes % 15.7 %; Mean Corpuscular HGB Conc 32.5 g/dL (30.0-36.0); Mean Corpuscular Hemoglobin 30.2 pg (28.0-34.0); Mean Platelet Volume 11.1 fL (7.4-10.4); Monocytes # 0.7 10^3/uL (0.2-0.9); Monocytes % 8.4 %; Neutrophils # 6.34 10^3/uL (1.8-7.7); Neutrophils % 73.3 %; Nucleated Red Blood Cells % 0 %; Platelet Count 272 10^3/cmm (130-400); Red Blood Count 4.73 10^6/uL (4.1-5.3); Red Cell Distribution Width 13.2 % (12.1-15.1); White Blood Count 8.7 10^3/uL (4.0-10.0)
[2022-06-25 23:56] LABS: Add Urine Microscopic? NO; Charge for UA Resulting for Rev
[2022-06-25 23:56] LABS: ABG PCO2 18.1 mmHg (35-45); ABG PH Result 7.31 (7.35-7.45); Arterial Blood Gas Hematocrit 44.3 % (37-47); Base Excess ABG -14.7 mmol/L (-2.0-2.0); Blood Gas Allen Test Pos; Blood Gas Operator Identificat WALCI; Blood Gas Sample Site Radial, right; Blood Gas Sample Type Arterial; HCO3 ABG 9.1 mmol/L (22-26)
[2022-06-25 23:57] VITALS: BP 134/94; PULSE 113; RESP 16; O2SAT 100
[2022-06-25 23:58] VITALS: PULSE 118; RESP 20; O2SAT 100
[2022-06-26] MEDS: ipratropium-albuterol 3 mL Neb INHALATION
[2022-06-26 00:02] VITALS: PULSE 116
[2022-06-26 00:02] LABS: Urine Appearance Clear (CLEAR); Urine Color Light Yellow (Yellow); pH Urine 5 (5-7)
[2022-06-26 00:03] LABS: Bilirubin Urine Neg (Negative); Blood Urine Neg (Negative); Glucose Urine UA 4+ (Normal); Ketones Urine 3+ (Negative); Leukocyte Esterase Urine Negative (Negative); Nitrate Urine Negative (Negative); Protein Urine Neg (Negative); Specific Gravity, Urine 1.015 (1.005-1.030); Sulfosalicylic Acid Urine Negative (Negative); Urobilinogen Urine Norm (Negative)
[2022-06-26 00:03] LABS: Ketone (Acetest) Serum Positive (Negative)
[2022-06-26 00:05] LABS: HCG, Serum Qual Negative (Negative)
[2022-06-26 00:15] LABS: Alanine Aminotransferase 21 U/L (0-33); Albumin Level 4.6 g/dL (3.5-5.2); Alkaline Phosphatase 221 U/L (35-105); Anion Gap 33.7 (5-19); Aspartate Amino Transferase 17 U/L (0-32); Blood Urea Nitrogen 23 mg/dL (6-20); Calcium 9.6 mg/dL (8.5-10.5); Carbon Dioxide 10 mmol/L (22-29); Chloride 90 mmol/L (98-107); Globulin 2.7 g/dL (1.3-4.6); Glomerular Filtration Rate 54.7 mL/min (90-130); Osmolality Calculated 303 mOsm/kg (285-295); Potassium 3.7 mmol/L (3.5-5.1); Sodium 130 mmol/L (136-145); Total Bilirubin 0.2 mg/dL (0.15-1.2); Total Protein 7.3 g/dL (6.6-8.7)
[2022-06-26 00:17] LABS: Glucose 633 mg/dL (65-115)
[2022-06-26 00:18] LABS: Troponin T (5th) Once 12 ng/L (0-10)
[2022-06-26 00:20] LABS: Lipase 40 U/L (13-60)
[2022-06-26] MEDS: sodium chloride 0.9% 1,000 ML 999 ML IV (00:23)
[2022-06-26] MEDS: potassium chloride ER 20 mEq Tablet 40 MEQ PO (00:30)
[2022-06-26] MEDS: pantoprazole 40 mg SDV IVP (00:30)
[2022-06-26 00:37] LABS: Glucose Point of Care 424 mg/dL (70-110)
--- NOTE | 2022-06-26 00:37 | PM.HP ---
Providers/Chief Complaint Chief Complaint: SOB History of Present Illness Lilliam Alvarez is a 26 year old female Medications/Allergies Home Medications Medication Instructions Recorded Confirmed Last Taken Type insulin aspart U-100 100 unit/mL See Rx Instructions .Route 06/09/22 Unknown Rx (3 mL) subcutaneous pen (Novolog .COMPLEX #15 mL Flexpen U-100 Insulin aspart) insulin glargine 100 unit/mL (3 45 unit SUBCUT QAM 06/09/22 06/09/22 Unknown History mL) subcutaneous pen (Lantus Solostar U-100 Insulin) testosterone cypionate 200 mg/mL 200 mg IM Q14D 06/09/22 06/09/22 Unknown History intramuscular oil Allergies Allergy/AdvReac Type Severity Reaction Status Date / Time pseudoephedrine Allergy Unknown Verified 06/08/22 11:43 PFSH Acute PFSH: Medical History Diabetes, type I Gastroparesis Long-term current use of testosterone replacement therapy Surgical History History of dental surgery History of eye surgery Family History Grandmother Cancer Social History Lives independently: Yes Household members: other Details: Roommate Current occupational status: employed Vitals/I&O/Wt Last Vital Signs Temp 98.7 F 06/25/22 23:23 Pulse 116 H 06/26/22 00:02 Resp 20 H 06/25/22 23:58 BP 134/94 06/25/22 23:57 Pulse Ox 100 06/25/22 23:58 O2 Del Method 06/25/22 23:58 Weight last 48 hrs Weight 56.699 kg Data : 06/25/22 23:32 06/25/22 23:32 Coding Level of Care Code Acute Patient Access Registrar for Migdalia Ribera
[2022-06-26 00:44] VITALS: BP 122/104; PULSE 124; RESP 17; O2SAT 100
--- NOTE | 2022-06-26 01:16 | PC.NURSE ---
Upon triage, pt states chief complaint is SOB and CP. Shiraz Lopez questioned pt about diabetes management and pt states his levels have been high and he administered 15 units long acting and 15 units short acting insulin at home before coming to ED. I completed a finger glucose test x2 with robert Gould which read high both times. Blood sent to lab resulted in glucose level of 633. 10 units regular insulin was administered IVP as well as other medications listed in MAR. Pt continued to complain of severe substernal chest pain and SOB and requesting something for pain. I administered 2 mg morphine IVP which resulted in pain relief for a short time per patient. I advised pt that his ABG results and blood work suggested high probability of the threat of DKA and the patient has an ICU bed available for treatment. Pt became agitated and stated that everytime he is here the staff treat his diabetic problems but do not address his other concerns such as SOB, chest pain, and why his blood glucose is not under control. I suggested that the SOB and chest pain could possibly be a symptom related to DKA. I also questioned pt about his PCP and other specialty caregivers that help treat his diabetes. Pt seemed comfortable with the care of his PCP and diabetic specialist. I brought admission medications into room to prepare pt for ICU admission and pt stated he wishes to be discharged. I advised pt that leaving could be detrimental to his health and that he will have to sign out AMA and I will ntfy provider. Dr Gregorio was ntfd of pt request to leave AMA and spoke with pt and his mother. After speaking with Dr Gregorio pt still requests to leave AMA. AMA form was given to pt, pt signed form and was discharged.
[2022-06-26 01:26] VITALS: BP 114/79; PULSE 116; RESP 16; O2SAT 100
--- NOTE | 2022-06-26 05:35 | PM.MISC ---
Miscellaneous Note Purpose of Documentation: I was called for admission to the emergency room in view of DKA. Preliminary orders for admission to the ICU had been placed by me. However prior to my assessment, patient left AMA from the emergency room. An H&P has therefore not been completed as patient was not seen.
== END 2022-06-26 01:13 | disposition left against medical advice (07) ==
LOC: ER 06-26 00:31 → ICU 06-26 00:39 → ER 06-26 01:13
PROVIDERS: Emergency Provider Nurse Practitioner Family
DX: E10.10 Type 1 diabetes mellitus with ketoacidosis without coma (principal)
CPT/HCPCS: 36416; 36600; 71045; 80053; 81003; 82009; 82803; 82962; 83690; 84484; 84703; 85025; 93005; 94640; 96361; 96374; 96375; 99285; C9113; J1815; J2270; J7030

== ENCOUNTER 2022-09-10 22:24 | Emergency (ER) | payer MEDICAID, SELFPAY ==
[2022-09-10 22:35] VITALS: BP 129/80; PULSE 109; RESP 16; TEMP 36.6; O2SAT 97
--- NOTE | 2022-09-10 23:20 | XRR_ITS ---
PROCEDURE INFORMATION: Exam: XR Chest Exam date and time: 09/10/2022 11:27 PM Age: 27 years old Clinical indication: Shortness of breath; Patient HX: C/O SOB. TECHNIQUE: Imaging protocol: Radiologic exam of the chest. Views: 2 views. COMPARISON: CR XR chest 1V portable [id number] 06/25/2022 11:31 PM FINDINGS: Lungs: Unremarkable. No consolidation. Pleural spaces: Unremarkable. No pleural effusion. No pneumothorax. Heart/Mediastinum: Unremarkable. No cardiomegaly. Bones/joints: Unremarkable. XR/XR chest 2V* [id number] IMPRESSION: No acute findings.
[2022-09-11 00:09] LABS: Add Urine Microscopic? NO; Charge for UA Resulting for Rev
[2022-09-11 00:32] LABS: Basophils # 0.1 10^3/uL (0.0-0.1); Basophils % 1.1 %; Eosinophils # 0.8 10^3/uL (0.0-0.8); Eosinophils % 8.1 %; Hematocrit 46.9 % (37.0-47.0); Hemoglobin 15.1 g/dL (11.5-15.3); Lymphocytes % 28.5 %; Mean Corpuscular HGB Conc 32.2 g/dL (30.0-36.0); Mean Corpuscular Hemoglobin 30.1 pg (28.0-34.0); Mean Corpuscular Volume 93.4 fl (81-99); Mean Platelet Volume 10.9 fL (7.4-10.4); Monocytes # 0.9 10^3/uL (0.2-0.9); Monocytes % 8.3 %; Neutrophils # 5.55 10^3/uL (1.8-7.7); Neutrophils % 53.1 %; Nucleated Red Blood Cells % 0 %; Platelet Count 298 10^3/cmm (130-400); Red Blood Count 5.02 10^6/uL (4.1-5.3); Red Cell Distribution Width 12.7 % (12.1-15.1); White Blood Count 10.4 10^3/uL (4.0-10.0)
[2022-09-11 00:57] LABS: Urine Appearance Clear (CLEAR); Urine Color Yellow (Yellow)
[2022-09-11 00:58] LABS: Bilirubin Urine Neg (Negative); Blood Urine Neg (Negative); Glucose Urine UA 4+ (Normal); Ketones Urine Negative (Negative); Leukocyte Esterase Urine Negative (Negative); Nitrate Urine Negative (Negative); Protein Urine Neg (Negative); Specific Gravity, Urine 1.015 (1.005-1.030); Urobilinogen Urine Norm (Negative); pH Urine 7 (5-7)
[2022-09-11 01:05] LABS: Alanine Aminotransferase 47 U/L (0-33); Albumin Level 4.4 g/dL (3.5-5.2); Alkaline Phosphatase 113 U/L (35-105); Anion Gap 15.8 (5-19); Aspartate Amino Transferase 32 U/L (0-32); Blood Urea Nitrogen 21 mg/dL (6-20); Calcium 9.6 mg/dL (8.5-10.5); Carbon Dioxide 28 mmol/L (22-29); Chloride 104 mmol/L (98-107); Globulin 2.9 g/dL (1.3-4.6); Glomerular Filtration Rate 149.1 mL/min (90-130); Glucose 114 mg/dL (65-115); NT Pro B Type Natriuretic Pept 27 pg/mL (0-125); Osmolality Calculated 302 mOsm/kg (285-295); Potassium 3.8 mmol/L (3.5-5.1); Sodium 144 mmol/L (136-145); Total Bilirubin 0.2 mg/dL (0.15-1.2); Total Protein 7.3 g/dL (6.6-8.7)
--- NOTE | 2022-09-11 01:50 | W.ED.GENADLT ---
HPI - General Adult General: Chief complaint: General Medical Stated complaint: Body Swollen\SOB Time Seen by Provider: 09/10/22 23:01 History of Present Illness: Patient is in today for concerns about swelling. Patient reports that he has been having increased swelling from his head to his toes for the past month. He reports that he has been evaluated at [facility] for this was told that everything looked fine. He reports that he is on long-term testosterone therapy does have type 1 diabetes. He reports that he went a very long time with his diabetes uncontrolled and then 2 months ago got an insulin pump. He reports that since that time his blood sugars been well controlled. He does offer that he has been less thirsty since his blood sugars been well controlled and he is only drinking maybe 1-2 bottles of water per day. He does offer that he eats his meat raw but he does get plenty of protein. He reports that he has had a little increase in dry cough and some shortness of breath. He denies any fever, chills, nausea, vomiting. He reports some itching rash on his abdomen. Denies any new sexual partners. Patient is female to male transgender denies menstrual cycle for 2 years. Associated symptoms: Reports dyspnea and rash (Slightly itchy rash lower abdomen); Deny chest pain, nausea, palpitations or vomiting Review of Systems Const: Denies: fever(s), chills or body aches Card: Reports: edema and swelling of feet/ankles; Denies: chest pain, palpitations or irregular heart rhythm Resp: Reports: dyspnea and non-productive cough; Denies: productive cough GI: Denies: abdominal pain, nausea, vomiting, diarrhea or constipation : Reports: amenorrhea; Denies: flank pain, difficulty voiding, dysuria, urinary frequency, urinary urgency, urinary hesitancy, vaginal bleeding or vaginal discharge Skin/Breast: Reports: rash (Slightly itchy rash lower abdomen) [facility] [place] [facility] PFSH: Medical History (Updated 09/11/22 @ 01:50 by IRMA Joe) Diabetes, type I Gastroparesis 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 Surgical History History of dental surgery History of eye surgery Family History Grandmother Cancer Social History (Updated 08/16/22 @ 13:56 by Kar Yancey MD) Smoking and tobacco status: current every day smoker e-cigarettes E-Cigarette Details: vaporizer device E-cig/vape details: 1 cartriage every 2 weeks Alcohol intake: never Lives independently: Yes Household members: other Details: Roommate Current occupational status: employed Physical Exam Const: COMMON NORMALS: no acute distress, patient oriented x3 and alert HENMT: COMMON NORMALS: normocephalic, hearing grossly normal bilaterally, Normal nasal mucous membranes and turbinates present, moist oral mucous membranes and oropharynx normal HEAD & SCALP: normocephalic NOSE: Normal nasal mucous membranes and turbinates present Neck/C-Spine: COMMON NORMALS: no JVD Resp: COMMON NORMALS: normal respiratory effort, No use of accessory muscles and clear to auscultation bilaterally AUSCULTATION: clear to auscultation bilaterally Cardio: COMMON NORMALS: no JVD, regular rate, regular rhythm, S1 normal heart sound present, S2 normal heart sound present and No murmurs present (Cardio) RATE: regular rate RHYTHM: regular rhythm HEART SOUNDS: S1 normal heart sound present and S2 normal heart sound present Extremity: NARRATIVE EXTREMITY EXAM: Mild edema lower legs bilateral. Nonpitting. Neuro: COMMON NORMALS: patient oriented x3, CN's II-XII intact bilaterally, moves all extremities and no focal motor deficits SENSORIUM/ORIENTATION: Yes alert Skin: OTHER: A couple areas of dry patchy skin on lower abdomen that patient identifies as a rash that comes and goes. Course Vital Signs: Vital signs: Vital Signs Temperature 97.9 F 09/10/22 22:35 Pulse Rate 109 H 09/10/22 22:35 Respiratory Rate 16 09/10/22 22:35 Blood Pressure 129/80 09/10/22 22:35 Pulse Oximetry 97 09/10/22 22:35 Oxygen Delivery Me thod 09/10/22 22:35 [facility] - General Adult Medical Decision Making Differentials include congestive heart failure, edema, cardiomyopathy, diabetes, long-term testosterone use, dehydration Labs with a minimally elevated white blood cell count of 10.4 and a slightly elevated BUN and serum osmolality. After work-up was completed patient advised that he is on Lasix per his primary care for the edema issue. He reports he has not had any increase in urination he has already reported that he is drinking less over the past 2 months since having his sugar under control. Advised patient that I would like him to drink half of his body weight in ounces of water per day and see if adequate hydration helps his fluid shifting. Advised him of lab results and chest x-ray results. Continue follow-up with primary care provider return to the ER as needed for new or worsening symptoms. Lab Data 09/10/22 23:51 09/10/22 23:51 Radiology Impressions Chest X-Ray 09/10/22 23:20 IMPRESSION: No acute findings. Laboratory Results WBC 10.4 10^3/uL (4.0-10.0) H 09/10/22 23:51 RBC 5.02 10^6/uL (4.1-5.3) 09/10/22 23:51 Hgb 15.1 g/dL (11.5-15.3) 09/10/22 23:51 Hct 46.9 % (37.0-47.0) 09/10/22 23:51 MCV 93.4 fl (81-99) 09/10/22 23:51 MCH 30.1 pg (28.0-34.0) 09/10/22 23:51 MCHC 32.2 g/dL (30.0-36.0) 09/10/22 23:51 RDW 12.7 % (12.1-15.1) 09/10/22 23:51 Plt Count 298 10^3/cmm (130-400) 09/10/22 23:51 MPV 10.9 fL (7.4-10.4) H 09/10/22 23:51 Neut % (Auto) 53.1 % 09/10/22 23:51 Lymph % (Auto) 28.5 % 09/10/22 23:51 [place] % (Auto) 8.3 % 09/10/22 23:51 Eos % (Auto) 8.1 % 09/10/22 23:51 Baso % (Auto) 1.1 % 09/10/22 23:51 Neut # (Auto) 5.55 10^3/uL (1.8-7.7) 09/10/22 23:51 Lymph # (Auto) 3.0 10^3/uL (0.8-4.8) 09/10/22 23:51 [place] # (Auto) 0.9 10^3/uL (0.2-0.9) 09/10/22 23:51 Eos # (Auto) 0.8 10^3/uL (0.0-0.8) 09/10/22 23:51 Baso # (Auto) 0.1 10^3/uL (0.0-0.1) 09/10/22 23:51 Nucleated RBC % (auto) 0 % 09/10/22 23:51 Nucleated RBCs # 0.0 /100WBC 09/10/22 23:51 Sodium 144 mmol/L (136-145) 09/10/22 23:51 Potassium 3.8 mmol/L (3.5-5.1) 09/10/22 23:51 Chloride 104 mmol/L (98-107) 09/10/22 23:51 Carbon Dioxide 28 mmol/L (22-29) 09/10/22 23:51 Anion Gap 15.8 (5-19) 09/10/22 23:51 BUN 21 mg/dL (6-20) H 09/10/22 23:51 Creatinine 0.5 mg/dL (0.5-0.9) 09/10/22 23:51 GFR Calculation 149.1 mL/min (90-130) H 09/10/22 23:51 Glucose 114 mg/dL (65-115) 09/10/22 23:51 Calculated Osmolality 302 mOsm/kg (285-295) H 09/10/22 23:51 Calcium 9.6 mg/dL (8.5-10.5) 09/10/22 23:51 Total Bilirubin 0.2 mg/dL (0.15-1.2) 09/10/22 23:51 AST 32 U/L (0-32) 09/10/22 23:51 ALT 47 U/L (0-33) H 09/10/22 23:51 Alkaline Phosphatase 113 U/L (35-105) H 09/10/22 23:51 NT-Pro-B Natriuret Pep 27 pg/mL (0-125) 09/10/22 23:51 Total Protein 7.3 g/dL (6.6-8.7) 09/10/22 23:51 Albumin 4.4 g/dL (3.5-5.2) 09/10/22 23:51 Globulin 2.9 g/dL (1.3-4.6) 09/10/22 23:51 Urine Color Yellow (Yellow) 09/10/22 23:51 Urine Appearance Clear (CLEAR) 09/10/22 23:51 Urine pH 7 (5-7) 09/10/22 23:51 Ur Specific [place] 1.015 (1.005-1.030) 09/10/22 23:51 Urine Protein Neg (Negative) 09/10/22 23:51 Urine Glucose (UA) 4+ (Normal) H 09/10/22 23:51 Urine Ketones Negative (Negative) 09/10/22 23:51 Urine Blood Neg (Negative) 09/10/22 23:51 Urine Nitrate Negative (Negative) 09/10/22 23:51 Urine Bilirubin Neg (Negative) 09/10/22 23:51 Urine Urobilinogen Norm mg/dL (Negative) 09/10/22 23:51 Ur Leukocyte Esterase Negative (Negative) 09/10/22 23:51 Urine HCG, Qual Negative (Negative) 09/10/22 23:51 Discharge Plan Discharge Patient Disposition: Home Clinical Impression: Lower extremity edema, Diabetes, type I, Long-term current use of testosterone replacement therapy Condition: Stable Prescriptions: No Action gabapentin 300 mg capsule 300 mg PO TID Qty: 90 1RF gabapentin 600 mg tablet 600 mg PO TID Qty: 90 0RF hydroxyzine HCl 50 mg tablet 50 mg PO TID PRN (Reason: anxiety) Qty: 60 0RF duloxetine [Cymbalta] 20 mg capsule,delayed release(DR/EC) 20 mg PO BID Qty: 60 0RF Novolog Flexpen U-100 Insulin 100 unit/mL (3 mL) insulin pen See Rx Instructions .ROUTE .COMPLEX Qty: 15 3RF Rx Instructions: ACHS Glucose: 141-180 - 2 units 181-220 - 3 221-260 - 4 261-300 - 5 301-350 - 6 351-400 - 7 >400 - 8 units insulin glargine [Lantus Solostar U-100 Insulin] 100 unit/mL (3 mL) insulin pen 45 unit SUBCUT QAM Qty: 15 5RF testosterone cypionate [Depo-Testosterone] 200 mg/mL oil 200 mg SUBCUT Q14D Qty: 1 5RF furosemide 40 mg tablet 40 mg PO DAILY PRN (Reason: edema) Qty: 10 0RF Discharge Orders: Discharge ED (Routine); Ordered 09/11/22 Ordered By: Janine Harper Discharge Diet: Diabetic Discharge Activity: Increase activity as tolerated Activity Restrictions/Additional Instructions: Your labs and your chest x-ray did not indicate any acute condition that needs immediate intervention at this time. It is possible that your edema could be related to decreased water intake versus long-term use of testosterone therapy. I recommend continued evaluation by your primary care provider. Return to the ER as needed for new or worsening symptoms Coding Level of Care Code ED [employer] [facility] for Migdalia Ribera
== END 2022-09-11 02:18 | disposition home or self-care (01) ==
PROVIDERS: Emergency Provider Nurse Practitioner Family
DX: R60.0 Localized edema (principal); E10.9 Type 1 diabetes mellitus without complications; Z79.890 Hormone replacement therapy; Z79.4 Long term (current) use of insulin; F17.290 Nicotine dependence, other tobacco product, uncomplicated
CPT/HCPCS: 71046; 80053; 81003; 81025; 83880; 85025; 99284

== ENCOUNTER 2022-09-16 01:05 | Emergency (ER) | payer MEDICAID, SELFPAY ==
[2022-09-16] VITALS (71 sets, daily range): BP systolic 98–137; BP diastolic 56–87; PULSE 100–126; RESP 0–20; TEMP 36.7; O2SAT 90–97; BMI 22.5
--- NOTE | 2022-09-16 01:36 | XRR_ITS ---
PROCEDURE INFORMATION: Exam: XR Chest Exam date and time: 09/16/2022 3:27 AM Age: 27 years old Clinical indication: Shortness of breath; Additional info: SOB TECHNIQUE: Imaging protocol: Radiologic exam of the chest. Views: 2 views. PA and Lateral COMPARISON: CR (CHEST, ) 09/10/2022 11:27 PM FINDINGS: Lungs: Normal lung volumes. No interstitial or airspace opacities. Pleural spaces: No pleural effusion. No pneumothorax. Heart/Mediastinum: Normal heart size. Normal mediastinal contour. Midline trachea. Bones/joints: No acute abnormalities. Gastrointestinal tract: Mildly air distended stomach is seen. XR/XR chest 2V* [id number] IMPRESSION: No chest radiographic evidence of acute cardiopulmonary disease.
[2022-09-16 04:53] LABS: Basophils % 0.4 %; Eosinophils # 0.7 10^3/uL (0.0-0.8); Eosinophils % 7.7 %; Hematocrit 42.2 % (37.0-47.0); Hemoglobin 14.2 g/dL (11.5-15.3); Lymphocytes # 2.3 10^3/uL (0.8-4.8); Lymphocytes % 23.9 %; Mean Corpuscular HGB Conc 33.6 g/dL (30.0-36.0); Mean Corpuscular Hemoglobin 30.3 pg (28.0-34.0); Mean Platelet Volume 11.5 fL (7.4-10.4); Monocytes % 10.8 %; Neutrophils # 5.45 10^3/uL (1.8-7.7); Neutrophils % 56.9 %; Nucleated Red Blood Cells % 0 %; Platelet Count 267 10^3/cmm (130-400); Red Blood Count 4.69 10^6/uL (4.1-5.3); Red Cell Distribution Width 12.2 % (12.1-15.1); White Blood Count 9.6 10^3/uL (4.0-10.0)
[2022-09-16 05:13] LABS: Influenza A by IFA negative (Negative); Influenza B by IFA negative (Negative); SARS Covid-2 Antigen negative (Negative)
[2022-09-16 05:48] LABS: D Dimer 0.32 ug/mIFEU (0-0.59)
[2022-09-16 05:51] LABS: Troponin(5th) Baseline 12 ng/L (0-10)
[2022-09-16 06:01] LABS: Alanine Aminotransferase 46 U/L (0-33); Albumin Level 4.2 g/dL (3.5-5.2); Alkaline Phosphatase 120 U/L (35-105); Anion Gap 14.5 (5-19); Aspartate Amino Transferase 23 U/L (0-32); Blood Urea Nitrogen 25 mg/dL (6-20); Calcium 9.1 mg/dL (8.5-10.5); Carbon Dioxide 28 mmol/L (22-29); Chloride 99 mmol/L (98-107); Globulin 2.4 g/dL (1.3-4.6); Glomerular Filtration Rate 149.1 mL/min (90-130); Glucose 164 mg/dL (65-115); NT Pro B Type Natriuretic Pept 80 pg/mL (0-125); Osmolality Calculated 294 mOsm/kg (285-295); Potassium 3.5 mmol/L (3.5-5.1); Sodium 138 mmol/L (136-145); Thyroid Stimulating Hormone 1.74 uIU/mL (0.27-4.20); Total Bilirubin 0.3 mg/dL (0.15-1.2); Total Protein 6.6 g/dL (6.6-8.7)
--- NOTE | 2022-09-16 06:34 | W.ED.SOB ---
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 Is on testosterone. Also a type I diabetic on insulin pump. Presenting with significant shortness of breath for the past 3 days or so. No chest discomfort at times it is substernal. Says best position for sleep the last 3 days is leaning forward. Has not been able to sleep in the bed. Also notes a 24 pound weight gain over the past 3 weeks or so of water weight. Has had to change hat sizes because the head feels swollen. Was placed on Lasix a couple of weeks ago and has been taking every other day without decrease in weight. MD elicited complaint: shortness of breath Onset (ago): day(s) Timing: constant Severity: moderate Exacerbating factors: lying flat and exertion Relieving factors: other Associated symptoms: Reports chest pain, cough and orthopnea; Deny abdominal pain, chest congestion, fever(s), nausea or vomiting Treatment prior to arrival: none Review of Systems Const: Denies: fever(s) ENMT: Denies: throat pain Card: Reports: chest pain and orthopnea Resp: Denies: chest congestion GI: Denies: abdominal pain, nausea or vomiting [facility] ED PFSH: Medical History Diabetes, type I Gastroparesis 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 Surgical History History of dental surgery History of eye surgery Family History Grandmother Cancer Social History Smoking and tobacco status: current every day smoker e-cigarettes E-Cigarette Details: vaporizer device E-cig/vape details: 1 cartriage every 2 weeks Alcohol intake: never Lives independently: Yes Household members: other Details: Roommate Current occupational status: employed Physical Exam Const: COMMON NORMALS: no acute distress GENERAL APPEARANCE: cooperative; not ill appearing and not frail appearing HENMT: COMMON NORMALS: normocephalic, atraumatic and Normal external nose present HEAD & SCALP: normocephalic and atraumatic FACE & SINUS: normal facial exam and face symmetric NOSE: Normal external nose present Eye: COMMON NORMALS: Equal, round and reactive pupils present and EOMs intact bilaterally PUPIL: Yes Equal, round and reactive pupils present Neck/C-Spine: GENERAL: Yes trachea midline Chest: CHEST: Yes Symmetrical chest wall rise Resp: COMMON NORMALS: normal respiratory effort, No retractions, No use of accessory muscles and clear to auscultation bilaterally AUSCULTATION: clear to auscultation bilaterally Cardio: COMMON NORMALS: regular rate and regular rhythm RATE: regular rate RHYTHM: regular rhythm GI: COMMON NORMALS: Normal to inspection, nondistended, normoactive bowel sounds present Extremity: GENERAL: Yes edema (1+) Neuro: NED COMA SCALE: document GCS findings [place] coma scale eye opening: Spontaneous Ned coma scale verbal response: Orientated Ned coma scale motor response: Obey commands [place] coma scale total score: 15 SENSORY EXAM: Yes extremities (intact) Psych: COMMON NORMALS: speech normal SPEECH: Yes normal speech Skin: COMMON NORMALS: no rashes or lesions noted GENERAL SKIN EXAM: no rashes or lesions noted Course Vital Signs: Vital signs: Vital Signs Temperature 98.1 F 09/16/22 01:17 Pulse Rate 101 H 09/16/22 13:10 Respiratory Rate 6 L 09/16/22 13:10 Blood Pressure 130/84 09/16/22 13:25 Pulse Oximetry 96 09/16/22 13:10 Oxygen Delivery Me thod Nasal Cannula 09/16/22 01:17 MDM - SOB/Dyspnea Medical Decision Making Patient is significantly tachycardic. 1 10-1 20 here. Normotensive. EKG shows a sinus tachycardia with a normal axis. Blood sugar is 164. BUN is 25. Troponin is elevated at 12. D-dimer is 0.32. Chest x-ray is read as normal. The concern is tachycardia, with an elevated troponin level and a 27-year-old on anabolic steroids. May need an echocardiogram. Will observe for further work-up. Lab Data 09/16/22 04:41 09/16/22 05:19 Labs/Radiology: Radiology Impressions Chest X-Ray 09/16/22 01:36 IMPRESSION: No chest radiographic evidence of acute cardiopulmonary disease. Chest CTA 09/16/22 09:53 IMPRESSION: 1. No CTA evidence of pulmonary embolism, thoracic aortic aneurysm or thoracic aortic dissection. 2. Mild left lower lobe patchy ground-glass opacities and tiny regions of consolidation. This is suspicious for pneumonia. Recommend follow-up until complete resolution. Laboratory Results WBC 9.6 10^3/uL (4.0-10.0) 09/16/22 04:41 RBC 4.69 10^6/uL (4.1-5.3) 09/16/22 04:41 Hgb 14.2 g/dL (11.5-15.3) 09/16/22 04:41 Hct 42.2 % (37.0-47.0) 09/16/22 04:41 MCV 90.0 fl (81-99) 09/16/22 04:41 MCH 30.3 pg (28.0-34.0) 09/16/22 04:41 MCHC 33.6 g/dL (30.0-36.0) 09/16/22 04:41 RDW 12.2 % (12.1-15.1) 09/16/22 04:41 Plt Count 267 10^3/cmm (130-400) 09/16/22 04:41 MPV 11.5 fL (7.4-10.4) H 09/16/22 04:41 Neut % (Auto) 56.9 % 09/16/22 04:41 Lymph % (Auto) 23.9 % 09/16/22 04:41 [place] % (Auto) 10.8 % 09/16/22 04:41 Eos % (Auto) 7.7 % 09/16/22 04:41 Baso % (Auto) 0.4 % 09/16/22 04:41 Neut # (Auto) 5.45 10^3/uL (1.8-7.7) 09/16/22 04:41 Lymph # (Auto) 2.3 10^3/uL (0.8-4.8) 09/16/22 04:41 [place] # (Auto) 1.0 10^3/uL (0.2-0.9) H 09/16/22 04:41 Eos # (Auto) 0.7 10^3/uL (0.0-0.8) 09/16/22 04:41 Baso # (Auto) 0.0 10^3/uL (0.0-0.1) 09/16/22 04:41 Nucleated RBC % (auto) 0 % 09/16/22 04:41 Nucleated RBCs # 0.0 /100WBC 09/16/22 04:41 D-Dimer 0.32 ug/mIFEU (0-0.59) 09/16/22 05:19 Sodium 138 mmol/L (136-145) 09/16/22 05:19 Potassium 3.5 mmol/L (3.5-5.1) 09/16/22 05:19 Chloride 99 mmol/L (98-107) 09/16/22 05:19 Carbon Dioxide 28 mmol/L (22-29) 09/16/22 05:19 Anion Gap 14.5 (5-19) 09/16/22 05:19 BUN 25 mg/dL (6-20) H 09/16/22 05:19 Creatinine 0.5 mg/dL (0.5-0.9) 09/16/22 05:19 GFR Calculation 149.1 mL/min (90-130) H 09/16/22 05:19 Glucose 164 mg/dL (65-115) H 09/16/22 05:19 Calculated Osmolality 294 mOsm/kg (285-295) 09/16/22 05:19 Calcium 9.1 mg/dL (8.5-10.5) 09/16/22 05:19 Total Bilirubin 0.3 mg/dL (0.15-1.2) 09/16/22 05:19 AST 23 U/L (0-32) 09/16/22 05:19 ALT 46 U/L (0-33) H 09/16/22 05:19 Alkaline Phosphatase 120 U/L (35-105) H 09/16/22 05:19 Troponin T Gen 5 ng/L 12 ng/L (0-10) H 09/16/22 11:19 Troponin T Baseline 12 ng/L (0-10) H 09/16/22 05:19 NT-Pro-B Natriuret Pep 80 pg/mL (0-125) 09/16/22 05:19 Total Protein 6.6 g/dL (6.6-8.7) 09/16/22 05:19 Albumin 4.2 g/dL (3.5-5.2) 09/16/22 05:19 Globulin 2.4 g/dL (1.3-4.6) 09/16/22 05:19 TSH 1.74 uIU/mL (0.27-4.20) 09/16/22 05:19 Total Testosterone 33.5 ng/dL (8.4-48.1) 09/16/22 05:19 Influenza Type A Ag negative (Negative) 09/16/22 04:41 Influenza Type B Ag negative (Negative) 09/16/22 04:41 SARS-CoV-2 Ag (Rapid) negative (Negative) 09/16/22 04:41 Discharge Plan Discharge Patient Disposition: Home Clinical Impression: Community acquired pneumonia, Sinus tachycardia, Testosterone adverse reaction, Sleep apnea, Current vaping on some days Condition: Stable Prescriptions: New doxycycline hyclate 100 mg capsule 100 mg PO BID 10 Days Qty: 20 0RF No Action gabapentin 300 mg capsule 300 mg PO TID Qty: 90 1RF gabapentin 600 mg tablet 600 mg PO TID Qty: 90 0RF hydroxyzine HCl 50 mg tablet 50 mg PO TID PRN (Reason: anxiety) Qty: 60 0RF duloxetine [Cymbalta] 20 mg capsule,delayed release(DR/EC) 20 mg PO BID Qty: 60 0RF Novolog Flexpen U-100 Insulin 100 unit/mL (3 mL) insulin pen See Rx Instructions .ROUTE .COMPLEX Qty: 15 3RF Rx Instructions: ACHS Glucose: 141-180 - 2 units 181-220 - 3 221-260 - 4 261-300 - 5 301-350 - 6 351-400 - 7 >400 - 8 units testosterone cypionate [Depo-Testosterone] 200 mg/mL oil 200 mg SUBCUT Q14D Qty: 1 5RF Daily Multi-Vitamin Tablet 1 tab PO DAILY Vitamin D3 25 mcg (1,000 unit) Tablet 25 mcg PO DAILY biotin 5 mg Tablet 5 mg PO DAILY furosemide 40 mg tablet 40 mg PO EVERY OTHER DAY PRN (Reason: edema) Discharge Orders: Discharge ED (Routine); Ordered 09/16/22 Ordered By: Kiko Cabrera Patient Instructions: Opioid Safety, Pain Management Activity Restrictions/Additional Instructions: You are seen today for tachycardia and complaints of shortness of breath and cough. Chest x-ray was normal. CT for the chest did not show any pulmonary embolism but did show questionable Left lower lobe pneumonia. You are started on some antibiotics for this. This is a very subtle finding it is questionable whether or not this is the cause of the the increased heart rate. Recommend that you establish with an commercial energy auditor familiar with testosterone supplementation there is a clinic in [facility] Case management will try to make arrangements for you to be established there. There is no sign of congestive heart failure and an echocardiogram done in the emergency room did not have any significant abnormalities. Cardiac enzymes trended normal there was no significant change in the 2 troponins done. Also recommend that you establish with a primary care physician. We did note that while you are in the emergency room while sleeping your oxygen saturation decreased and you had snoring which is likely indicative of sleep apnea. This needs further evaluation you were given Ativan for anxiety and that may have played a role in it as well. Further testing can be done on an outpatient basis to to clarify this. Your use of vaping products may also play a role in some of your symptoms and would recommend that you stop using them. Stand Alone Forms: Work/School Release Sign Out Sign Out Data: Patient Sign Out occurred on 09/16/22 at 07:21. Patient's care was discussed, and care was transferred from to Kiko Cabrera DO. 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 Surgical History History of dental surgery History of eye surgery Family History Grandmother Cancer Social History Smoking and tobacco status: current every day smoker e-cigarettes E-Cigarette Details: vaporizer device E-cig/vape details: 1 cartriage every 2 weeks Alcohol intake: never Lives independently: Yes Household members: other Details: Roommate Current occupational status: employed Physical Exam Neuro: NED COMA SCALE: document GCS findings Ned coma scale total score: 15 Course Vital Signs: Vital signs: Vital Signs Temperature 98.1 F 09/16/22 01:17 Pulse Rate 101 H 09/16/22 13:10 Respiratory Rate 6 L 09/16/22 13:10 Blood Pressure 130/84 09/16/22 13:25 Pulse Oximetry 96 09/16/22 13:10 Oxygen Delivery Me thod Nasal Cannula 09/16/22 01:17 MDM - SOB/Dyspnea Medical Decision Making Patient is significantly tachycardic. 1 10-1 20 here. Normotensive. EKG shows a sinus tachycardia with a normal axis. Blood sugar is 164. BUN is 25. Troponin is elevated at 12. D-dimer is 0.32. Chest x-ray is read as normal. The concern is tachycardia, with an elevated troponin level and a 27-year-old on anabolic steroids. May need an echocardiogram. Will observe for further work-up. Care assumed at change of shift reviewed the chart initially Dr. Barber did talk about admitting the patient troponin was slightly elevated at 12. In lieu of admission he decided to complete the full work-up in the ER because we are short on beds and it would be more expeditious. Discussed the case with Dr. Rosales her commercial energy auditor and she recommended even though the D-dimer was normal to go ahead and do the CTA to evaluate for the tachycardia. Patient told me that there has been tachycardia for extended period of time. CTA showed a questionable area of pneumonia but was very subtle. There was no pulmonary embolism a repeat troponin showed no significant change delta was 0. Echocardiogram was unremarkable. Patient is on duloxetine and hydroxyzine 3 times daily for anxiety wondered if this may not be in some part due to anxiety gave the patient a single dose of Ativan. This caused some drowsiness and he slept for time during that time we noted that he would have snoring and some mild desaturations. Suspect patient may have some underlying sleep apnea which also could contribute to tachycardia. Longstanding testosterone supplementation could also contribute to this. In addition to that the subtle pneumonia could contribute to it as well. Given there is no evidence of cardiac dysfunction echocardiogram no PE or pneumothorax on the CT I think the patient can be safely be discharged home would benefit from a round of antibiotics. Think would also significantly benefit from establishing with an commercial energy auditor familiar with testosterone supplementation for pts going through gender transition. At this point I do not believe there is any further work-up that would need to be done emergently and the patient can safely be discharged home. Explained this to the mother who is at the bedside she was quite angry and did not understand why with an elevated troponin there was not more concern. Explained to her with the nurse present that its the delta on the troponin that matters. And by doing a second troponin and there was no significant change is likely at baseline it may be related to a number of different things but there is no evidence that is any kind of acute coronary event going on. Especially in light of a normal echocardiogram and the other testing that done that was normal. Had 2 separate prolonged conversations with the mother attempting to answer all questions finally she just asked for the discharge paperwork and wanted to leave. I will try to get patient established with endocrinology in [place] as per Dr. Rosales's recommendation. Medical Records I reviewed the patient's medical records. Lab Data I reviewed the patient's lab results. 09/16/22 04:41 09/16/22 05:19 Labs/Radiology: Radiology Impressions Chest X-Ray 09/16/22 01:36 IMPRESSION: No chest radiographic evidence of acute cardiopulmonary disease. Chest CTA 09/16/22 09:53 IMPRESSION: 1. No CTA evidence of pulmonary embolism, thoracic aortic aneurysm or thoracic aortic dissection. 2. Mild left lower lobe patchy ground-glass opacities and tiny regions of consolidation. This is suspicious for pneumonia. Recommend follow-up until complete resolution. Laboratory Results WBC 9.6 10^3/uL (4.0-10.0) 09/16/22 04:41 RBC 4.69 10^6/uL (4.1-5.3) 09/16/22 04:41 Hgb 14.2 g/dL (11.5-15.3) 09/16/22 04:41 Hct 42.2 % (37.0-47.0) 09/16/22 04:41 MCV 90.0 fl (81-99) 09/16/22 04:41 MCH 30.3 pg (28.0-34.0) 09/16/22 04:41 MCHC 33.6 g/dL (30.0-36.0) 09/16/22 04:41 RDW 12.2 % (12.1-15.1) 09/16/22 04:41 Plt Count 267 10^3/cmm (130-400) 09/16/22 04:41 MPV 11.5 fL (7.4-10.4) H 09/16/22 04:41 Neut % (Auto) 56.9 % 09/16/22 04:41 Lymph % (Auto) 23.9 % 09/16/22 04:41 [place] % (Auto) 10.8 % 09/16/22 04:41 Eos % (Auto) 7.7 % 09/16/22 04:41 Baso % (Auto) 0.4 % 09/16/22 04:41 Neut # (Auto) 5.45 10^3/uL (1.8-7.7) 09/16/22 04:41 Lymph # (Auto) 2.3 10^3/uL (0.8-4.8) 09/16/22 04:41 [place] # (Auto) 1.0 10^3/uL (0.2-0.9) H 09/16/22 04:41 Eos # (Auto) 0.7 10^3/uL (0.0-0.8) 09/16/22 04:41 Baso # (Auto) 0.0 10^3/uL (0.0-0.1) 09/16/22 04:41 Nucleated RBC % (auto) 0 % 09/16/22 04:41 Nucleated RBCs # 0.0 /100WBC 09/16/22 04:41 D-Dimer 0.32 ug/mIFEU (0-0.59) 09/16/22 05:19 Sodium 138 mmol/L (136-145) 09/16/22 05:19 Potassium 3.5 mmol/L (3.5-5.1) 09/16/22 05:19 Chloride 99 mmol/L (98-107) 09/16/22 05:19 Carbon Dioxide 28 mmol/L (22-29) 09/16/22 05:19 Anion Gap 14.5 (5-19) 09/16/22 05:19 BUN 25 mg/dL (6-20) H 09/16/22 05:19 Creatinine 0.5 mg/dL (0.5-0.9) 09/16/22 05:19 GFR Calculation 149.1 mL/min (90-130) H 09/16/22 05:19 Glucose 164 mg/dL (65-115) H 09/16/22 05:19 Calculated Osmolality 294 mOsm/kg (285-295) 09/16/22 05:19 Calcium 9.1 mg/dL (8.5-10.5) 09/16/22 05:19 Total Bilirubin 0.3 mg/dL (0.15-1.2) 09/16/22 05:19 AST 23 U/L (0-32) 09/16/22 05:19 ALT 46 U/L (0-33) H 09/16/22 05:19 Alkaline Phosphatase 120 U/L (35-105) H 09/16/22 05:19 Troponin T Gen 5 ng/L 12 ng/L (0-10) H 09/16/22 11:19 Troponin T Baseline 12 ng/L (0-10) H 09/16/22 05:19 NT-Pro-B Natriuret Pep 80 pg/mL (0-125) 09/16/22 05:19 Total Protein 6.6 g/dL (6.6-8.7) 09/16/22 05:19 Albumin 4.2 g/dL (3.5-5.2) 09/16/22 05:19 Globulin 2.4 g/dL (1.3-4.6) 09/16/22 05:19 TSH 1.74 uIU/mL (0.27-4.20) 09/16/22 05:19 Total Testosterone 33.5 ng/dL (8.4-48.1) 09/16/22 05:19 Influenza Type A Ag negative (Negative) 09/16/22 04:41 Influenza Type B Ag negative (Negative) 09/16/22 04:41 SARS-CoV-2 Ag (Rapid) negative (Negative) 09/16/22 04:41 Discharge Plan Discharge Patient Disposition: Home Clinical Impression: Community acquired pneumonia, Sinus tachycardia, Testosterone adverse reaction, Sleep apnea, Current vaping on some days Condition: Stable Prescriptions: New doxycycline hyclate 100 mg capsule 100 mg PO BID 10 Days Qty: 20 0RF No Action gabapentin 300 mg capsule 300 mg PO TID Qty: 90 1RF gabapentin 600 mg tablet 600 mg PO TID Qty: 90 0RF hydroxyzine HCl 50 mg tablet 50 mg PO TID PRN (Reason: anxiety) Qty: 60 0RF duloxetine [Cymbalta] 20 mg capsule,delayed release(DR/EC) 20 mg PO BID Qty: 60 0RF Novolog Flexpen U-100 Insulin 100 unit/mL (3 mL) insulin pen See Rx Instructions .ROUTE .COMPLEX Qty: 15 3RF Rx Instructions: ACHS Glucose: 141-180 - 2 units 181-220 - 3 221-260 - 4 261-300 - 5 301-350 - 6 351-400 - 7 >400 - 8 units testosterone cypionate [Depo-Testosterone] 200 mg/mL oil 200 mg SUBCUT Q14D Qty: 1 5RF Daily Multi-Vitamin Tablet 1 tab PO DAILY Vitamin D3 25 mcg (1,000 unit) Tablet 25 mcg PO DAILY biotin 5 mg Tablet 5 mg PO DAILY furosemide 40 mg tablet 40 mg PO EVERY OTHER DAY PRN (Reason: edema) Discharge Orders: Discharge ED (Routine); Ordered 09/16/22 Ordered By: Kiko Cabrera Patient Instructions: Opioid Safety, Pain Management Activity Restrictions/Additional Instructions: You are seen today for tachycardia and complaints of shortness of breath and cough. Chest x-ray was normal. CT for the chest did not show any pulmonary embolism but did show questionable Left lower lobe pneumonia. You are started on some antibiotics for this. This is a very subtle finding it is questionable whether or not this is the cause of the the increased heart rate. Recommend that you establish with an commercial energy auditor familiar with testosterone supplementation there is a clinic in [place] at [facility] Case management will try to make arrangements for you to be established there. There is no sign of congestive heart failure and an echocardiogram done in the emergency room did not have any significant abnormalities. Cardiac enzymes trended normal there was no significant change in the 2 troponins done. Also recommend that you establish with a primary care physician. We did note that while you are in the emergency room while sleeping your oxygen saturation decreased and you had snoring which is likely indicative of sleep apnea. This needs further evaluation you were given Ativan for anxiety and that may have played a role in it as well. Further testing can be done on an outpatient basis to to clarify this. Your use of vaping products may also play a role in some of your symptoms and would recommend that you stop using them. Stand Alone Forms: Work/School Release Sign Out Sign Out Data: Patient Sign Out occurred on 09/16/22 at 07:21. Patient's care was discussed, and care was transferred from to Kiko Cabrera DO. Coding Level of Care Code ED Ash Conveyor Operator for Migdalia Ribera Exam Comprehensive
--- NOTE | 2022-09-16 07:56 | USCV_ITS ---
Lilliam Alvarez Age: 27 Gender: F : 1995 Exam Date: 09/16/2022 08:45 Ordering Phys: Kiko Cabrera DO Technologist: Trevor Sahu Exam Location: [facility] Indication: chest pain BP: 111 / 69 HR: 96 Rhythm: Sinus Technical Quality: Good MEASUREMENTS (Male / Female) Normal Values 2D ECHO LV Diastolic Diameter PLAX 3.2 cm 4.2 - 5.9 / 3.9 - 5.3 cm LV Systolic Diameter PLAX 2.3 cm IVS Diastolic Thickness 0.9 cm 0.6 - 1.0 / 0.6 - 0.9 cm IVS Systolic Thickness 1.2 cm LVPW Diastolic Thickness 1.1 cm 0.6 - 1.0 / 0.6 - 0.9 cm LVPW Systolic Thickness 1.6 cm LVOT Diameter 2.0 cm LV Ejection Fraction 2D Teich 41.6 % LV Ejection Fraction MOD 2C 66.8 % LV Ejection Fraction 2C AL 67.6 % LA Diameter 3.9 cm IVC Diameter 1.7 cm M-MODE Aortic Annulus Diameter 3.1 cm LA Ao Ratio MM 1.3 MV E Point Septal Separation 0.8 cm DOPPLER AV Peak Velocity 120.0 cm/s LVOT Peak Velocity 107.0 cm/s AV Area Cont Eq vti 2.8 cm squared AV Area Cont Eq pk 2.9 cm squared MV Area PHT 5.0 cm squared Mitral E to A Ratio 1.4 MV E' Velocity 49.0 cm/s Mitral E to MV E' Ratio 6.9 Mitral E to LV E' Lateral Ratio 6.1 Mitral E to LV E' Septal Ratio 8.0 TR Peak Velocity 138.7 cm/s TR Peak Gradient 7.7 mmHg TV Peak E Velocity 80.0 cm/s Right Atrial Pressure 3.0 mmHg Pulmonary Artery Systolic Pressu 10.7 mmHg RV Acceleration Time 0.1 s FINDINGS Left Ventricle Left ventricle is normal size. LV systolic function is normal with EF 55 to 60%. No regional wall motion abnormalities are seen. Diastolic function is normal Right Ventricle Normal in size and function Right Atrium Normal in size Left Atrium Normal in size Mitral Valve Structurally normal mitral valve. Trace mitral regurgitation Aortic Valve Grossly normal. No significant stenosis or regurgitation Tricuspid Valve Trace tricuspid regurgitation. Insufficient TR jet to evaluate RVSP. Pulmonic Valve Not well visualized Pericardium Normal Aorta Normal in size IVC Appears to be normal CONCLUSIONS LV systolic function is normal with EF 55 to 60%. Diastolic function is normal. Trace mitral regurgitation. Trace tricuspid regurgitation. No comparison studies are Casper Cody MD (Electronically Signed) Final Date: 16 September 2022 12:45 S
[2022-09-16] MEDS: LORazepam 2 mg Tablet PO (08:17)
--- NOTE | 2022-09-16 08:31 | ECG_ITS ---
[facility] Test Date: 2022-09-16 Pat Name: Lilliam Alvarez Department: Room: Gender: Female Material Liaison: : 1995 Requested By: Roger Ureña Order Number: [id number] Jude MD: Lou Ramsey M.D. Measurements Intervals [place] Rate: 99 P: 64 [place]: 148 QRS: 70 QRSD: 96 T: 74 QT: 357 QTc: 459 Interpretive Statements SINUS RHYTHM Compared to ECG 06/25/2022 23:29:31 Sinus tachycardia no longer present Atrial abnormality no longer present Myocardial infarct finding no longer present Electronically Signed On 09-16-2022 20:26:04 ACID STRENGTH INSPECTOR by Lou Ramsey M.D. [email or web address]
[2022-09-16 08:46] LABS: Testosterone Total 33.5 ng/dL (8.4-48.1)
--- NOTE | 2022-09-16 09:53 | CTR_ITS ---
PROCEDURE INFORMATION: Exam: CTA Chest With Contrast Exam date and time: 09/16/2022 10:12 AM Age: 27 years old Clinical indication: Dyspnea; Additional info: Tachycardia/dyspnea. PT here from home for eval of shortness of breath and wet cough . PT reports he feels like his lungs are full of fluid and he can hear a crackling sound when he breathes. PT reports cough began 3-4 days ago. PT reports he has had difficulty sleep and now prefers sitting up or leaning over something to sleep. PT also reports 24lb weight gain in 3 weeks. PT ankles are swollen at this time with pitting edema noted. TECHNIQUE: Imaging protocol: Computed tomographic angiography of the chest with contrast. 3D rendering (Not supervised by radiologist): MIP and/or 3D reconstructed images were created by the technologist. Radiation optimization: All CT scans at this facility use at least one of these dose optimization techniques: automated exposure control; mA and/or kV adjustment per patient size (includes targeted exams where dose is matched to clinical indication); or iterative reconstruction. Contrast material: OMNI 350; Contrast volume: 79 ml; Contrast route: INTRAVENOUS (IV); COMPARISON: CR (CHEST, ) 09/16/2022 3:27 AM RADIATION DOSE METRICS: Total DLP (mGy-cm): 294.24 FINDINGS: Pulmonary arteries: No CT evidence for segmental pulmonary emboli. The main pulmonary arteries and outflow trunk are unremarkable. Aorta: No thoracic aortic aneurysm. No thoracic aortic dissection. Trachea: The central airway is normal. Lungs: Normal lung volumes. Mild left lower lobe medial and posterior basilar patchy ground-glass opacities and tiny regions of consolidation. This is suspicious for pneumonia. Recommend follow-up until complete resolution. No interlobular septal thickening or honeycombing seen to suggest interstitial lung disease on CT. Pleural spaces: No pneumothorax. No pleural effusion. Heart: The heart size is within normal limits. The RV/LV ratio is normal at 1 (no CT evidence of RV strain). There is no pericardial effusion. No coronary arterial atherosclerotic vascular calcifications. Lymph nodes: No enlarged lymph nodes. Bones/joints: No acute osseous abnormalities. Soft tissues: Unremarkable. CT/CT angio chest PE protcl [id number] IMPRESSION: 1. No CTA evidence of pulmonary embolism, thoracic aortic aneurysm or thoracic aortic dissection. 2. Mild left lower lobe patchy ground-glass opacities and tiny regions of consolidation. This is suspicious for pneumonia. Recommend follow-up until complete resolution.
[2022-09-16] MEDS: iohexol 350 mg/mL 500 mL Btl (per mL) IV (10:51)
[2022-09-16 11:57] LABS: Troponin T (5th) Once 12 ng/L (0-10)
--- NOTE | 2022-09-16 13:52 | DCPLANNER ---
Addendum entered by Cindy Vogel 09/25/22 11:02: transportation project manager called the endo clinic at [facility] to confirm that clinic received patients information. transportation project manager was told that clinic did receive patients information. Clinic stated that they have tried to contact patient and have mailed a letter to patient to contact clinic to schedule an appointment. Original Note: transportation project manager had message to refer patient to endocrinology at [facility]. transportation project manager faxed patients information to the clinic at [facility], who will call patient with appointment information. Fax number is [phone].
== END 2022-09-16 13:25 | disposition home or self-care (01) ==
PROVIDERS: Emergency Medicine; Emergency Provider Family Medicine
DX: J18.9 Pneumonia, unspecified organism (principal); R00.0 Tachycardia, unspecified; T38.7X5A Adverse effect of androgens and anabolic congeners, initial encounter; G47.30 Sleep apnea, unspecified; F17.290 Nicotine dependence, other tobacco product, uncomplicated; Z79.4 Long term (current) use of insulin; Z20.822 Contact with and (suspected) exposure to COVID-19; E10.9 Type 1 diabetes mellitus without complications; Z79.890 Hormone replacement therapy
CPT/HCPCS: 36415; 71046; 71275; 80053; 83880; 84403; 84443; 84484; 85025; 85378; 87426; 87804; 93005; 93306; 99285; Q9967

== ENCOUNTER 2022-09-28 02:16 | Emergency (ER) | payer MEDICAID, SELFPAY ==
[2022-09-28 02:18] VITALS: BP 121/75; PULSE 121; RESP 18; TEMP 36.7; O2SAT 95; BMI 19.5
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
== END 2022-09-28 04:21 | disposition home or self-care (01) ==
PROVIDERS: Emergency Provider Emergency Medicine
DX: F10.129 Alcohol abuse with intoxication, unspecified (principal); Y90.9 Presence of alcohol in blood, level not specified; Z79.4 Long term (current) use of insulin; S09.8XXA Other specified injuries of head, initial encounter; Y04.2XXA Assault by strike against or bumped into by another person, initial encounter; E10.9 Type 1 diabetes mellitus without complications; F17.290 Nicotine dependence, other tobacco product, uncomplicated; Z79.890 Hormone replacement therapy
CPT/HCPCS: 70450; 71045; 72125; 99284

== ENCOUNTER → 2022-09-29 17:02 | Outpatient (BNVA) | payer MEDICAID, SELFPAY | PROVIDERS: Visit Provider Nurse Practitioner Family | DX: M79.642 Pain in left hand (principal) | CPT/HCPCS: 73130 ==